=== PATIENT | female | born 1980 | race Caucasian/White ===

== ENCOUNTER 2016-04-07 18:08 | Emergency (ER) | payer MEDICAID ==
[~2016-04-07] VITALS: Ht 167.6 cm; Wt 93.0 kg
[~2016-04-07 18:08] MED LIST: ABILIFY10 MG PO; ADIPEX-P37.5 M2 PO; ADIPEX-P37.5 MG PO; ALEVE220 MG PO; AMOXICILLIN 50500 MG PO; AMOXICILLIN500 M2 PO; ANAPROX DS550 MG PO; ATIVAN GENERIC0.5 MG PO; AUGMENTIN 875-1 EACH PO; BACTRIM DS 8001 TAB PO; BACTROBAN2% TP; BENTYL10 M1 PO; CELEXA 20MG TAB20 MG PO; CIPRO 500MG TA500 MG PO; CIPROFLOXACIN500 M2 PO; CLONAZEPAM 1MG T1 MG; COGENTIN GENERIC1 MG PO; ESTRADIOL1 MG PO; FLEXERIL10 MG PO; FLONASE 50 MCG16 GM; GABAPENTIN300 M1 PO; GENTAMICIN O5 ML/BOT OP; HYDROCODONE1 TABLET PO; IBUPROFEN800 MG PO; INDERAL10 MG; KEFLEX 500MG.500 MG PO; KLONOPIN WAFERS1 MG PO; LANSOPRAZOLE30 MG PO; LEVAQUIN250 MG PO; LEXAPRO 20 MG T20 MG PO; MACROBID 100MG100 MG PO; MEDROL 4MG. DOSE4 MG PO; MELOXICAM15 MG PO; MOBIC15 MG PO; MOTRIN400 MG PO; MOTRIN600 M1 PO; MOTRIN600 MG PO; MOTRIN800 MG PO; MUCINEX600 MG PO; NAPROSYN 500MG500 MG PO; NAPROSYN500 M1 PO; NASONEX0.05 MG/AC NS; NEOSPORIN OPTH.4 GM OP; NORCO 325 MG-51 TAB PO; OMEPRAZOLE40 MG PO; PAXIL20 MG PO; PERCOCET 5/3251 EACH PO; PHENERGAN 25MG.25 M1 PO; PHENTERMINE37.5 MG PO; PREDNISONE 20MG20 MG PO; PROTONIX40 MG PO; PYRIDIUM 200MG200 MG PO; QUETIAPINE FUM200 M1 PO; QUETIAPINE FUMA25 MG PO; RISPERDAL 1 MG T1 MG PO; ROBAXIN-750750 MG PO; SEPTRA DS 800 M1 TAB PO; SEROQUEL 100MG100 MG PO; SUMATRIPTAN SUC25 MG PO; TOPIRAMATE 25MG25 MG PO; TORADOL10 M1 PO; ULTRAM 50 MG TA50 MG PO; VERAPAMIL HCL120 MG PO; VICODIN 5/500 T1 TAB PO; VICODIN 5/6 EACH/PAK OR; VISTARIL25 MG PO; VOLTAREN75 MG PO; WELLBUTRIN 100100 M1 PO; WELLBUTRIN 150150 MG; XANAX 0.5MG TA0.5 MG PO; ZANTAC 150150 MG PO; ZITHROMAX Z-PA250 M1 PO; ZOFRAN4 MG PO; ZYPREXA 5MG TAB5 MG PO
[2016-04-07 19:02] LABS: UTC STREP SCREEN NOT DETECTED (NOTDETECTED)
--- NOTE | 2016-04-07 19:19 | Urgent Treatment Center Report ---
History of Present Issue Date/Time Seen by Provider 04/07/16 1820 Visit Reason Pt arrived:Walked Presenting Problem:SORE THROAT, VOMITING, DIARRHEA, BODY ACHES SINCE THIS MORNING Location if Accident: Onset of symptoms date/time:/ or onset unknown for:MEDICAL HX UNKNOWN Have you (or family members/close friends) recently traveled outside the [place]? N If Yes, where/when: Have you had exposure to infectious disease within the past month? TB? Other? Specify: Patient states that she has not been feeling well since this morning states that she has been having sore throat vomiting diarrhea and body aches. States that her daughter had a virus similar to this a few days ago ALLERGIES Coded Allergies: lamotrigine (From Lamictal) (Intermediate, I-RASH 12/15/15) codeine (Mild, NA-NAUSEA 12/15/15) Home Medications Active Scripts ONDANSETRON HCL (Zofran 4MG Tab) 4 MG PO Q6HP PRN NAUSEA AND VOMITING #40 TAB Prov: 12/15/15 Pantoprazole Sodium (Protonix) 40 MG PO DAILY #30 ECT Prov: 12/15/15 Naproxen (Naprosyn 500MG Tab) 500 MG PO BID #60 TAB Prov: 12/21/15 Acetaminophen/Hydrocodone Bi (Vicodin) 1 TAB PO TIDP PRN pain\ #10 TAB Prov: 12/23/15 Ibuprofen (Ibuprofen 800MG) 800 MG PO Q8HP PRN pain #15 TAB Prov: 07/04/15 Reported Medications Estradiol 2 MG PO DAILY Escitalopram Oxalate (Lexapro 20MG) 20 MG PO DAILY History Medical History General CAD? No Angina: No [place]: No Hypertension? Yes Hyperlipidemia? No CHF? No DVT? No PE? No COPD? No Asthma? No Anemia? No GERD? Yes Gastric ulcers? No GI Bleed? No Hernia? No Thyroid Problems? No Hypothyroidism? No CVA? No Seizures? No Diabetes? No Insulin Dependent: No Insulin Pump: No Home FSBS? No Renal Insuffiency? No UTI? Yes Stones? No BPH? No GB Disease: Yes Nephritic Syndrome? No Asplenia? No Hepatitis? No Sickle Cell Disease? No Arthritis? No Migraines? No Cataracts? No Glaucoma? No MRSA? No HIV? No TB? No Anxiety? Yes Depression? No Cancer? No Site: CERVICAL DYSPLASIA More? Yes Additional hx: BIPOLAR, PERSONALITY DISORDER, HEART MURMUR, HEART VALVE PROBLEM, Immunization HX DT/Tetanus > 10 Years Ago Flu 02/23/14 Pneumonia 02/23/14 Surgical Hx Previous Surgery?Y CERVICAL BIOPSY OVARIAN CYST DRAINED RIGHT OVARY REMOVED D&C 07/2007 TUBAL GALLBLADDER 04/20/09 APPENDIX 05/28/09 PARTIAL HYSTERECTOMY L OVARY REMOVED 854493 ORIF RT TIB/FIB LEG SURGERY TO REMOVE SCR Family History Family HX Diabetes Yes CAD Yes Hypertension Yes Hyperlipidemia Yes Cancer Yes TB No Social History Smoking Hx Smoker: Current Every Day Smoker Tobacco: Yes Type Cigarettes Packs/day < 1 Pack Alcohol Alcohol: No Review of Systems All Other Systems Reviewed and Negative ENT nose congestion. Respiratory cough Gastrointestinal nausea, vomiting Physical Exam Vital Signs Vital Signs Date Time Temp Pulse Resp B/P Pulse O2 O2 Flow FiO2 Ox Delivery Rate 04/07 1844 98.2 100 16 106/61 98 04/07 1812 98.2 100 16 106/61 98 General Appearance patient lying on bed, appears ill Respiratory Status Yes: trachea midline, chest symmetrical, non tender chest. No: respiratory distress. Cardiovascular normal exam, no peripheral edema, no gallop, no JVD Neurologic alert, normal exam, no motor/sensory deficits Medical Decision Making LABS/Meds/Orders Pt receiving controlled substance in ED? No Results/Orders Laboratory Tests 04/07/161846: Influenza Type A Ag NOT DETECTED, Influenza Type B Ag NOT DETECTED, Group A Strep Screen NOT DETECTED Orders Procedure Date/time Status UTC STREP SCREEN 04/07 1846 Complete UTC FLU A,B 04/07 1846 Complete Departure Departure Time of Disposition 1915 Disposition DC Home or Self Care(routine) Clinical Impression Primary Impression: Viral gastroenteritis Condition STABLE Referrals Baltazar Green (Family) Patient Instructions Norovirus Infection, Viral Gastroenteritis Additional Instructions Drink Plenty of fluids Over the counter Motrin or Tylenol for fever Follow up family doctor Discharge Counseling Counseled pt/family regarding diagnosis, home care, follow up needs at 1919
[2016-04-07 19:33] VITALS: BP 106/61
== END 2016-04-07 19:34 | disposition home or self-care (01) ==
LOC: ER 18:08 → UTC 18:08
PROVIDERS: Nurse Practitioner
DX: K52.9 Noninfective gastroenteritis and colitis, unspecified (principal)

== ENCOUNTER 2016-06-14 21:16 | Emergency (ER) | payer MEDICAID ==
[~2016-06-14] VITALS: Ht 167.6 cm; Wt 102.5 kg
--- NOTE | 2016-06-14 22:33 | Emergency Room Report ---
See Addendum History of Present Illness Time Seen by 2125 Presenting Problem in Triage Pt arrived:Walked Presenting Problem:C/O KNOT ONLEFT BREAST FOR APPROX 2 WEEKS. 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 N Clinical Suspician of Infection? Y Mental Status: 1 - Regular (Normal Baseline) Sepsis Risk:Low Sepsis Risk Have you (or family members/close friends) recently traveled outside the [place]? N If Yes, where/when: Have you had exposure to infectious disease within the past month? N TB? Other? Specify: Comment The patient complains of a possible boil on her LEFT breast for 2 weeks. She has a history of a boil in the same general area inferior to her breast months ago. No fever. She complains of pain. ALLERGIES Coded Allergies: lamotrigine (From Lamictal) (Intermediate, I-RASH 12/15/15) codeine (Mild, NA-NAUSEA 12/15/15) Home Medications Active Scripts ONDANSETRON HCL (Zofran 4MG Tab) 4 MG PO Q6HP PRN NAUSEA AND VOMITING #40 TAB Prov: 12/15/15 Pantoprazole Sodium (Protonix) 40 MG PO DAILY #30 ECT Prov: 12/15/15 Naproxen (Naprosyn 500MG Tab) 500 MG PO BID #60 TAB Prov: 12/21/15 Acetaminophen/Hydrocodone Bi (Vicodin) 1 TAB PO TIDP PRN pain\ #10 TAB Prov: 12/23/15 Ibuprofen (Ibuprofen 800MG) 800 MG PO Q8HP PRN pain #15 TAB Prov: 07/04/15 Reported Medications Estradiol 2 MG PO DAILY Escitalopram Oxalate (Lexapro 20MG) 20 MG PO DAILY History Medical History General CAD? No Angina: No [place]: No Hypertension? Yes Hyperlipidemia? No CHF? No DVT? No PE? No COPD? No Asthma? No Anemia? No GERD? Yes Gastric ulcers? No GI Bleed? No Hernia? No Thyroid Problems? No Hypothyroidism? No CVA? No Seizures? No Diabetes? No Insulin Dependent: No Insulin Pump: No Home FSBS? No Renal Insuffiency? No End Stage Renal Disease? No UTI? Yes Stones? No BPH? No GB Disease: Yes Nephritic Syndrome? No Asplenia? No Hepatitis? No Sickle Cell Disease? No Arthritis? No Migraines? No Cataracts? No Glaucoma? No MRSA? No HIV? No TB? No Anxiety? Yes Depression? No Cancer? No Site: CERVICAL DYSPLASIA More? 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 Cardiovascular regular rate/rhythm Neurologic alert, no motor/sensory deficits Skin nurse present during exam of breast and during procedure., 3 cm diameter abscess with overlying cellulitis inferior medial LEFT breast. Tender. Medical Decision Making LABS/Meds/Orders Pt receiving controlled substance in ED? Yes Pedro was queried for this patient? Yes Reference #: [id number] Comment 4 rxs. last rx 10 [place] on 12/28/15 Results/Orders Current Medication Orders Sig/Nedra Start time Last Medication Dose Route Stop Time Status Admin Hydrocodone Bitart/ 1 TAB ONCE ONE 06/14 2299 AC 06/14 Acetaminophen PO 06/14 2300 225 Trimethoprim/ 1 TABLET ONCE ONE 06/14 2299 CKDr 06/14 Sulfamethoxazole PO 06/14 2300 225 Trimethoprim/ 0 .STK-MED ONE 06/14 2254 DC Sulfamethoxazole PO Hydrocodone Bitart/ 0 .STK-MED ONE 06/14 2252 DC Acetaminophen PO Departure Departure Disposition DC Home or Self Care(routine) Clinical Impression Primary Impression: Cutaneous abscess Qualifiers: Site of cutaneous abscess: trunk Site of cutaneous abscess of trunk : chest wall Qualified Code: L02.213 - Cutaneous abscess of chest wall Condition STABLE Patient Instructions DI for Incision and Drainage of a Skin Abscess Additional Instructions Additional instructions for ABSCESS: Day one and two: Remove the bandage and shower the area, leaving the packing in place. Gently blot dry. Apply a bandage. Day three: Remove the bandage. Wet the packing in the shower and remove the packing. Apply a bandage. Days four and beyond: Clean area with soap and water in the shower daily. Apply a bandage daily until the wound is closed completely. Return to the emergency department if increasing pain, swelling, redness, redstreaks or fever greater than 101 degrees. Prescriptions Current Visit Scripts SULFAMETHOXAZOLE W/TRIMETHOPRI (Bactrim Ds Tab) 1 TAB PO BID #20 TAB HYDROCODONE/ACETAMINOPHEN ([place] 5-325 Tablet) 1 TAB PO Q6HP PRN pain #6 TAB ED Critical Care Critical Care No at 1930
--- NOTE | 2016-06-14 22:33 | Emergency Room Report ---
See Addendum History of Present Illness Time Seen by 2125 Presenting Problem in Triage Pt arrived:Walked Presenting Problem:C/O KNOT ONLEFT BREAST FOR APPROX 2 WEEKS. 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 N Clinical Suspician of Infection? Y Mental Status: 1 - Regular (Normal Baseline) Sepsis Risk:Low Sepsis Risk Have you (or family members/close friends) recently traveled outside the [place]? N If Yes, where/when: Have you had exposure to infectious disease within the past month? N TB? Other? Specify: Comment The patient complains of a possible boil on her LEFT breast for 2 weeks. She has a history of a boil in the same general area inferior to her breast months ago. No fever. She complains of pain. ALLERGIES Coded Allergies: lamotrigine (From Lamictal) (Intermediate, I-RASH 12/15/15) codeine (Mild, NA-NAUSEA 12/15/15) Home Medications Active Scripts ONDANSETRON HCL (Zofran 4MG Tab) 4 MG PO Q6HP PRN NAUSEA AND VOMITING #40 TAB Prov: 12/15/15 Pantoprazole Sodium (Protonix) 40 MG PO DAILY #30 ECT Prov: 12/15/15 Naproxen (Naprosyn 500MG Tab) 500 MG PO BID #60 TAB Prov: 12/21/15 Acetaminophen/Hydrocodone Bi (Vicodin) 1 TAB PO TIDP PRN pain\ #10 TAB Prov: 12/23/15 Ibuprofen (Ibuprofen 800MG) 800 MG PO Q8HP PRN pain #15 TAB Prov: 07/04/15 Reported Medications Estradiol 2 MG PO DAILY Escitalopram Oxalate (Lexapro 20MG) 20 MG PO DAILY History Medical History General CAD? No Angina: No [place]: No Hypertension? Yes Hyperlipidemia? No CHF? No DVT? No PE? No COPD? No Asthma? No Anemia? No GERD? Yes Gastric ulcers? No GI Bleed? No Hernia? No Thyroid Problems? No Hypothyroidism? No CVA? No Seizures? No Diabetes? No Insulin Dependent: No Insulin Pump: No Home FSBS? No Renal Insuffiency? No End Stage Renal Disease? No UTI? Yes Stones? No BPH? No GB Disease: Yes Nephritic Syndrome? No Asplenia? No Hepatitis? No Sickle Cell Disease? No Arthritis? No Migraines? No Cataracts? No Glaucoma? No MRSA? No HIV? No TB? No Anxiety? Yes Depression? No Cancer? No Site: CERVICAL DYSPLASIA More? 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 Cardiovascular regular rate/rhythm Neurologic alert, no motor/sensory deficits Skin nurse present during exam of breast and during procedure., 3 cm diameter abscess with overlying cellulitis inferior medial LEFT breast. Tender. Medical Decision Making LABS/Meds/Orders Pt receiving controlled substance in ED? Yes Pedro was queried for this patient? Yes Reference #: [id number] Comment 4 rxs. last rx 10 [place] on 12/28/15 Results/Orders Current Medication Orders Sig/Nedra Start time Last Medication Dose Route Stop Time Status Admin Hydrocodone Bitart/ 1 TAB ONCE ONE 06/14 2299 AC 06/14 Acetaminophen PO 06/14 2300 225 Trimethoprim/ 1 TABLET ONCE ONE 06/14 2299 CKDr 06/14 Sulfamethoxazole PO 06/14 2300 225 Trimethoprim/ 0 .STK-MED ONE 06/14 2254 DC Sulfamethoxazole PO Hydrocodone Bitart/ 0 .STK-MED ONE 06/14 2252 DC Acetaminophen PO Departure Departure Disposition DC Home or Self Care(routine) Clinical Impression Primary Impression: Cutaneous abscess Qualifiers: Site of cutaneous abscess: trunk Site of cutaneous abscess of trunk : chest wall Qualified Code: L02.213 - Cutaneous abscess of chest wall Condition STABLE Patient Instructions DI for Incision and Drainage of a Skin Abscess Additional Instructions Additional instructions for ABSCESS: Day one and two: Remove the bandage and shower the area, leaving the packing in place. Gently blot dry. Apply a bandage. Day three: Remove the bandage. Wet the packing in the shower and remove the packing. Apply a bandage. Days four and beyond: Clean area with soap and water in the shower daily. Apply a bandage daily until the wound is closed completely. Return to the emergency department if increasing pain, swelling, redness, redstreaks or fever greater than 101 degrees. Prescriptions Current Visit Scripts SULFAMETHOXAZOLE W/TRIMETHOPRI (Bactrim Ds Tab) 1 TAB PO BID #20 TAB HYDROCODONE/ACETAMINOPHEN ([place] 5-325 Tablet) 1 TAB PO Q6HP PRN pain #6 TAB ED Critical Care Critical Care No at 5828
[2016-06-14] MEDS ORDERED: NORCO 325 MG-51 TAB PO (22:57)
[2016-06-14] MEDS ORDERED: BACTRIM DS 8001 TA1 PO (22:57)
[2016-06-14 23:04] VITALS: BP 135/83
== END 2016-06-14 23:06 | disposition home or self-care (01) ==
LOC: ER 21:16
PROC: 0H95XZZ Drainage of Chest Skin, External Approach (ICD-10-PCS; principal; 2016-06-14)
DX: L02.213 Cutaneous abscess of chest wall (principal); I10 Essential (primary) hypertension; Z72.0 Tobacco use

== ENCOUNTER 2016-11-05 13:02 | Emergency (ER) | payer MEDICAID ==
[~2016-11-05] VITALS: Ht 167.6 cm; Wt 99.8 kg
--- NOTE | 2016-11-05 13:59 | Urgent Treatment Center Report ---
History of Present Issue Date/Time Seen by Provider 11/05/16 1340 Visit Reason Pt arrived:Walked Presenting Problem:PT STATES SHE FELL AND INJURIED HER RT ELBOW ON THURSDAY NIGHT. Location if Accident: Onset of symptoms date/time:/ or onset unknown for:MEDICAL HX UNKNOWN Have you (or family members/close friends) recently traveled outside the [place]? N If Yes, where/when: Have you had exposure to infectious disease within the past month? TB? Other? Specify: Patient state that she fell on Thursday night against the couch and landed on her right elbow State that ever since she has been having pain and swelling in her right elbow and some bruising with a small carpet burn on the lower side of her arm State that she noticed that after the pain went down she has been having more pain that she was when she first injuried it ALLERGIES Coded Allergies: lamotrigine (From Lamictal) (Intermediate, I-RASH 12/15/15) codeine (Mild, NA-NAUSEA 12/15/15) Home Medications Active Scripts Pantoprazole Sodium (Protonix) 40 MG PO DAILY #30 ECT Prov: 12/15/15 Azithromycin (Zithromycin (Z-BENJAMÍN) 250MG Tab) 250 MG PO DAILY #6 TAB Prov: 09/05/16 Methylprednisolone (Medrol Dose Benjamín) 4 MG PO UD #1 BENJAMÍN Prov: 09/05/16 Reported Medications Estradiol 2 MG PO DAILY Escitalopram Oxalate (Lexapro 20MG) 20 MG PO DAILY History Medical History General CAD? No Angina: No [place]: No Hypertension? Yes Hyperlipidemia? No CHF? No DVT? No PE? No COPD? No Asthma? No Anemia? No GERD? Yes Gastric ulcers? No GI Bleed? No Hernia? No Thyroid Problems? No Hypothyroidism? No CVA? No Seizures? No Diabetes? No Insulin Dependent: No Insulin Pump: No Home FSBS? No Renal Insuffiency? No UTI? Yes Stones? No BPH? No GB Disease: Yes Nephritic Syndrome? No Asplenia? No Hepatitis? No Sickle Cell Disease? No Arthritis? No Migraines? No Cataracts? No Glaucoma? No MRSA? No HIV? No TB? No Anxiety? Yes Depression? No Cancer? No Site: CERVICAL DYSPLASIA More? Yes Additional hx: BIPOLAR, PERSONALITY DISORDER, HEART MURMUR, HEART VALVE PROBLEM, Immunization HX DT/Tetanus > 10 Years Ago Flu 02/23/14 Pneumonia 02/23/14 Surgical Hx Previous Surgery?Y CERVICAL BIOPSY OVARIAN CYST DRAINED RIGHT OVARY REMOVED D&C 07/2007 TUBAL GALLBLADDER 04/20/09 APPENDIX 05/28/09 PARTIAL HYSTERECTOMY L OVARY REMOVED [id number] ORIF RT TIB/FIB LEG SURGERY TO REMOVE SCR Family History Family HX Diabetes Yes CAD Yes Hypertension Yes Hyperlipidemia Yes Cancer Yes TB No Social History Smoking Hx Smoker: Current Every Day Smoker Tobacco: Yes Type Cigarettes Packs/day < 1 Pack Alcohol Alcohol: No Review of Systems All Other Systems Reviewed and Negative Comment Pain and bruising in right elbow area after falling on Thursday Physical Exam Vital Signs Vital Signs Date Time Temp Pulse Resp B/P Pulse O2 O2 Flow FiO2 Ox Delivery Rate 11/05 1313 97.7 91 20 128/84 97 General Appearance normal appearance, WD/WN, no apparent distress Respiratory Status Yes: trachea midline, chest symmetrical, non tender chest. No: respiratory distress. Cardiovascular normal exam, regular rate/rhythm, no peripheral edema Extremities swelling, Swelling and contusion with small scabbed area that patient claims is carpet burn, good pulse, good cap refill Neurologic alert, training assistant II-XII nml as tested, normal exam, no motor/sensory deficits, oriented x 3 Medical Decision Making LABS/Meds/Orders Pt receiving controlled substance in ED? No Results/Orders Orders Procedure Date/time Status ELBOW-RT-3 VIEWS 11/05 1313 Active Departure Departure Time of Disposition 1355 Disposition DC Home or Self Care(routine) Clinical Impression Primary Impression: Elbow sprain Condition STABLE Referrals Karel MENDOZA,Mahad Alcantar (Family) Patient Instructions How To Perform RICE (Rest, Ice, Compress, Elevate) Additional Instructions *RICE, Rest the extremity, Ice 15-20 minutes 3-4 times daily, Compress- wear the mika wrap as discussed as much as possible to help reduce swelling and pain, Elevate the extremity when at rest *Mika wrap is for support and help control swelling, use it except in the shower. Be sure that is not to tight but not to loose either *Elevate when resting *Ibuprofen 600-800mg every 6-8 hours as needed for pain an inflammation. If need something more can take Tylenol in between doses of Ibuprofen to help Immediately follow up for new or worsening of symptoms, or no noticeable improvement over the next 3-5 days Discharge Counseling Counseled pt/family regarding diagnosis, test results, medications/RX, home care, follow up needs at 2489
--- NOTE | 2016-11-05 14:08 | RADIOLOGY REPORT PS360 ---
ELBOW-RT-3 VIEWS HISTORY: INJURY ORDERING PHYSICIAN: CHLOE VAZQUEZ APRN PATIENT AGE: 36 years COMPARISON: None FINDINGS: BONY STRUCTURES: No fracture or dislocation. No lytic or blastic change. Normal mineralization. SOFT TISSUES: Unremarkable. No radio opaque foreign bodies. No displaced fat pad. JOINT SPACE: Well-preserved. No significant arthritic changes evident. IMPRESSION: Negative elbow.
[2016-11-05 14:22] VITALS: BP 128/84
== END 2016-11-05 14:23 | disposition home or self-care (01) ==
LOC: UTC 13:02
DX: S53.401A Unspecified sprain of right elbow, initial encounter (principal); W08.XXXA Fall from other furniture, initial encounter; Y92.048 Other place in boarding-house as the place of occurrence of the external cause; I10 Essential (primary) hypertension; F41.9 Anxiety disorder, unspecified; Z79.899 Other long term (current) drug therapy; F17.210 Nicotine dependence, cigarettes, uncomplicated; F31.9 Bipolar disorder, unspecified

== ENCOUNTER 2016-11-24 02:33 | Emergency (ER) | payer MEDICAID ==
[~2016-11-24] VITALS: Ht 167.6 cm; Wt 102.5 kg
[~2016-11-24 02:33] MED LIST changes: +BACTRIM DS 8001 TA1 PO; +ZITHROMAX Z PA250 MG PO
--- NOTE | 2016-11-24 02:48 | Emergency Room Report ---
History of Present Illness Time Seen by MD Casillas Presenting Problem in Triage Pt arrived:Walked Presenting Problem:HEADACHE STARTED AT 12:30 AM TONIGHT, STATES IT RUNS FROM BASE OF RIGHT NECK UP AND AROUND HEAD, AND NECK PAIN. Onset of symptoms date/time:11/24/1611/02/29 or onset unknown for: Treatment Prior to Arrival: OTC HEADACHE RELIEF SAP FICO ARCHITECT Provided by:SELF Sepsis Risk Assessment: Temp: 98.0 B/P: 141/96 MAP: 111 Pulse: 67 Resp: 22 Recent fever? N Clinical Suspician of Infection? N Mental Status: 1 - Regular (Normal Baseline) Sepsis Risk:Low Sepsis Risk Have you (or family members/close friends) recently traveled outside the [place]? N If Yes, where/when: Have you had exposure to infectious disease within the past month? N TB? Other? Specify: Source patient, RN notes reviewed, old records Exam Limitations no limitations Comment atraumatic rt occipital wilkes and neck pain w/o trauma or rash and no aura which started tonight Cardiac Chest Pain Chest pain indicative of cardiac No Timing/Duration this evening Severity moderate ALLERGIES Coded Allergies: lamotrigine (From Lamictal) (Intermediate, I-RASH 12/15/15) codeine (Mild, NA-NAUSEA 12/15/15) Home Medications Active Scripts Pantoprazole Sodium (Protonix) 40 MG PO DAILY #30 ECT Prov: 12/15/15 Reported Medications Escitalopram Oxalate (Lexapro 20MG) 20 MG PO DAILY History Medical History General CAD? No Angina: No [place]: No Hypertension? Yes Hyperlipidemia? No CHF? No DVT? No PE? No COPD? No Asthma? No Anemia? No GERD? Yes Gastric ulcers? No GI Bleed? No Hernia? No Thyroid Problems? No Hypothyroidism? No CVA? No Seizures? No Diabetes? No Insulin Dependent: No Insulin Pump: No Home FSBS? No Renal Insuffiency? No End Stage Renal Disease? No UTI? Yes Stones? No BPH? No GB Disease: Yes Nephritic Syndrome? No Asplenia? No Hepatitis? No Sickle Cell Disease? No Arthritis? No Migraines? No Cataracts? No Glaucoma? No MRSA? No HIV? No TB? No Anxiety? Yes Depression? No Cancer? No Site: CERVICAL DYSPLASIA More? 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 Respiratory denies cough, denies shortness of breath, denies wheezing Cardiovascular denies chest pain, denies syncope Gastrointestinal denies abdominal pain, denies diarrhea, denies vomiting Genitourinary denies: dysuria, frequency, hesitancy, hematuria. Musculoskeletal denies back pain, denies joint pain, denies joint swelling, neck pain Skin denies rash Psychiatric/Neurological see HPI, headache, denies seizure Physical Exam Vital Signs Vital Signs Date Time Temp Pulse Resp B/P Pulse O2 O2 Flow FiO2 Ox Delivery Rate 11/24 0406 66 20 148/82 96 11/24 0236 98.0 67 22 141/96 96 - WBC >12,000 or <4,000 or 10% bands? 2 or more SIRS Criteria Met? B/P:141/96 MAP:111 Creatinine >2.0? UA output<0.5ml/kg/hr for 2 hrs? Platelet count >100,000? Lactate >2.0mmol/1? INR >1.2 or PTT > than 60 sec? Evidence of Organ Dysfunction? Provider documented clinical suspician of infection? N Sepsis Criteria Count: 1 Sepsis Risk: Low Sepsis Risk General Appearance no apparent distress Eye Exam - bilateral eye PERRL, bilateral eye EOMI Ear, Nose, Throat abnormal TM (R) Neck tender lateral Respiratory Status No: respiratory distress. Cardiovascular regular rate/rhythm Peripheral Pulses Pulses normal Yes Gastrointestinal soft Extremities normal inspection Strength 4 Upper Ext (L), 4 Upper Ext (R), 4 Lower Ext (L), 4 Lower Ext (R) Neurologic alert, cooker loader II-XII nml as tested, no motor/sensory deficits Glascow Coma Scale Glascow Coma Scale Response Value EYE response: 4 Spontaneously 4 MOTOR response: 6 OBEYS 6 VERBAL response: 5 Oriented & Converses 5 Total 15 Reflexes Reflexes normal Yes Mental status normal mood/affect Skin no rash cons.w/shingles Medical Decision Making LABS/Meds/Orders Pt receiving controlled substance in ED? No Results/Orders Laboratory Tests 11/24/16 0305: Sodium 138, Potassium 3.3 L, Chloride 105, Carbon Dioxide 26, BUN 11, Creatinine 0.6, Estimated Creat Clear 214 H, Estimated GFR (MDRD) 114, Glucose 104, Calcium 9.0, Total Bilirubin 0.5, AST 18, ALT 34, Alkaline Phosphatase 93, Total Protein 7.7, Albumin 3.6, Globulin 4.1 H, Albumin/Globulin Ratio 0.9 L, WBC 6.3, RBC 4.63, Hgb 13.3, Hct 41.2, MCV 88.9, RDW 12.7, Plt Count 232, MPV 8.4, Gran % 47.5, Gran # 3.0, Lymphocytes % 45.6, Monocytes % 5.0, Eosinophils % 1.4, Basophils % 0.6, Lymphocytes # 2.9, Monocytes # 0.3, Eosinophils # 0.1, Basophils # 0.0, PUBS MCHC 32.3, ESR 66 H, MCH 28.7 Orders Procedure Date/time Status DIET-NOTHING BY MOUTH 11/[address] HEAD W/O CONTRAST 11/[address] CERVICAL SPINE W/O CONT. 11/[address] SCAN REQ 11/24 245 Active SED RATE 11/24 245 Complete COMPLETE METABOLIC PANEL 11/24 245 Complete CBC WITH AUTO DIFF 11/24 245 Complete XRAY/CT/US XRAY/CT/US CT head, C-spine CT interpretation by discussed w/radiologist Time results known: 319 CT Results no fracture seen Departure Departure Time of Disposition 319 Disposition DC Home or Self Care(routine) Clinical Impression Primary Impression: Otitis media Qualifiers: Otitis media type: unspecified Chronicity: acute Qualified Code: H66.90 - Otitis media, unspecified, unspecified ear Condition STABLE Referrals Karel MENDOZA,Mahad Alcantar (Family) Patient Instructions DI for Headache Additional Instructions fluids and use meds Discharge Counseling Counseled pt/family regarding diagnosis, test results, medications/RX, follow up needs Prescriptions Current Visit Scripts CEPHALEXIN (Keflex 500MG Capsule) 500 MG PO Q12H #14 CAP Prednisone (Prednisone 20MG) 20 MG PO BID #10 TAB ED Critical Care Critical Care No at 0401
[2016-11-24 03:26] LABS: LYMPH # 2.9 K/mm3 (0.7-4.5); LYMPH % 45.6 % (10-50.0)
[2016-11-24 03:27] LABS: HEMOGLOBIN 13.3 g/dL (12.2-16.2)
[2016-11-24] MEDS ORDERED: KEFLEX 500MG.500 MG PO (04:08)
[2016-11-24] MEDS ORDERED: PREDNISONE 20MG20 MG PO (04:08)
[2016-11-24 04:23] VITALS: BP 148/82
--- NOTE | 2016-11-24 08:45 | RADIOLOGY REPORT PS360 ---
CT CERVICAL SPINE W/O CONT INDICATION: Right-sided neck pain radiating into the head, headache HEADACHE ORDERING PHYSICIAN: Vijay Vinson MD PATIENT AGE: 36 years COMPARISON: None TECHNIQUE: Axial images are obtained without contrast. Sagittal and coronal reformatted images are reviewed as well. FINDINGS: There is straightening of the cervical lordosis. No fracture or dislocation. There is normal alignment. The disc spaces are well-preserved. No lytic or blastic change. Facet hypertrophic changes are present on the right at C4-C5 but is not causing any foraminal narrowing. Lung apices are clear. There is some heterogeneous density of the thyroid gland nonspecific. Scattered small lymph nodes are present in the neck the largest node on the left measuring up to 2.5 x 1.6 cm in the deep cervical chain. IMPRESSION: 1. No acute finding. 2. Mild facet hypertrophic change on the right at C4-C5. 3. Mildly enlarged cervical lymph nodes
--- NOTE | 2016-11-24 08:46 | RADIOLOGY REPORT PS360 ---
CT HEAD W/O CONTRAST HISTORY: Severe headache HEADACHE ORDERING PHYSICIAN: Vijay Vinson MD PATIENT AGE: 36 years COMPARISON: None TECHNIQUE: Axial images obtained without contrast. Brain and bone windows reviewed. FINDINGS: No midline shift, mass effect, intracranial hemorrhage, hydrocephalus, or extra-axial fluid collection is evident. The calvarium has an unremarkable appearance. No mastoid effusion. The visualized paranasal sinuses are unremarkable. IMPRESSION: Negative CT head without contrast. No acute finding.
--- OUTSIDE RECORDS SUMMARY | 2016-11-29 01:41 | External Medical Summary Rpt | CCD ---
Demographics Preferred Language Rwandan Marital Status Unknown Rastafarian Affiliation Unknown Race Unknown Ethnic Group Unknown Author Author , SHAY DAY Address Unknown Phone Immunization Unable to retrieve immunization data due to connection failure with Immunization Registry. Please try again later.
--- OUTSIDE RECORDS SUMMARY | 2016-11-29 01:41 | External Medical Summary Rpt | CCD ---
Demographics Preferred Language [place] Marital Status Unknown Denominational Affiliation Unknown Race Unknown Ethnic Group Unknown Author Author , SHAY DAY Address Unknown Phone Immunization Unable to retrieve immunization data due to connection failure with Immunization Registry. Please try again later.
--- OUTSIDE RECORDS SUMMARY | 2016-11-29 01:42 | External Medical Summary Rpt ---
Author Author SHAY Fournier, SHAY [employer] Organization [employer] Address Unknown Phone Unavailable Results Streptococcus pyogenes Ag [Presence] in Unspecified specimen Observa Value Referen Units Interpr Notes Date tion ce etation Range Strepto NOT NOTDETE No No LOT # Sep 05 coccus DETECTE CTED informa informa N/A EXP 2016 pyogene D tion in tion in DATE 1:31 PM s Ag source source N/A [Presen data data ce] in Unspeci fied specime n
== END 2016-11-24 04:23 | disposition home or self-care (01) ==
LOC: ER 02:33
PROVIDERS: Emergency Medicine
DX: H66.91 Otitis media, unspecified, right ear (principal); Z88.6 Allergy status to analgesic agent; I10 Essential (primary) hypertension; K21.9 Gastro-esophageal reflux disease without esophagitis; F41.9 Anxiety disorder, unspecified; F17.210 Nicotine dependence, cigarettes, uncomplicated

== ENCOUNTER → 2016-11-27 | Outpatient (CLI) | payer MEDICAID ==
[~2016-11-27] MED LIST changes: +BROMFED DM COU118 ML PO
[2016-11-28 08:51] LABS: RA Latex Turbid. <10.0 IU/mL (0.0-13.9)
[2016-11-30 18:36] LABS: CCP Antibodies IgG/IgA 8 units (0-19)
== END ==
LOC: LAB 13:11
PROVIDERS: Nurse Practitioner Family
DX: R70.0 Elevated erythrocyte sedimentation rate (principal)

== ENCOUNTER 2016-12-21 09:02 | Emergency (ER) | payer MEDICAID ==
[~2016-12-21] VITALS: Ht 167.6 cm; Wt 102.7 kg
[~2016-12-21 09:02] MED LIST changes: -BROMFED DM COU118 ML PO
--- NOTE | 2016-12-21 09:35 | Urgent Treatment Center Report ---
History of Present Issue Date/Time Seen by Provider 12/21/16923 Visit Reason Pt arrived:Walked Presenting Problem:PT C/O OF COUGH, HEAD AND CHEST CONGESTION AND SORE THROAT Location if Accident: Onset of symptoms date/time:/ or onset unknown for:MEDICAL HX UNKNOWN Have you (or family members/close friends) recently traveled outside the [place]? N If Yes, where/when: Have you had exposure to infectious disease within the past month? TB? Other? Specify: Patient state that she has had cough and congestion along with sinus pain and pressure along with sore throat. State that symptoms started yesterday and has continued to get worse. State that she woke up this morning and her throat was more irritated and sore and the drainage had her coughing all night. ALLERGIES Coded Allergies: lamotrigine (From Lamictal) (Intermediate, I-RASH 12/15/15) codeine (Mild, NA-NAUSEA 12/15/15) Home Medications Active Scripts Pantoprazole Sodium (Protonix) 40 MG PO DAILY #30 ECT Prov: 12/15/15 CEPHALEXIN (Keflex 500MG Capsule) 500 MG PO Q12H #14 CAP Prov: 11/24/16 Prednisone (Prednisone 20MG) 20 MG PO BID #10 TAB Prov: 11/24/16 Reported Medications Escitalopram Oxalate (Lexapro 20MG) 20 MG PO DAILY History Medical History General CAD? No Angina: No [place]: No Hypertension? Yes Hyperlipidemia? No CHF? No DVT? No PE? No COPD? No Asthma? No Anemia? No GERD? Yes Gastric ulcers? No GI Bleed? No Hernia? No Thyroid Problems? No Hypothyroidism? No CVA? No Seizures? No Diabetes? No Insulin Dependent: No Insulin Pump: No Home FSBS? No Renal Insuffiency? No UTI? Yes Stones? No BPH? No GB Disease: Yes Nephritic Syndrome? No Asplenia? No Hepatitis? No Sickle Cell Disease? No Arthritis? No Migraines? No Cataracts? No Glaucoma? No MRSA? No HIV? No TB? No Anxiety? Yes Depression? No Cancer? No Site: CERVICAL DYSPLASIA More? Yes Additional hx: BIPOLAR, PERSONALITY DISORDER, HEART MURMUR, HEART VALVE PROBLEM, Immunization HX DT/Tetanus > 10 Years Ago Flu 01/08/15 Pneumonia 02/23/14 Surgical Hx Previous Surgery?Y CERVICAL BIOPSY OVARIAN CYST DRAINED RIGHT OVARY REMOVED D&C 07/2007 TUBAL GALLBLADDER 04/20/09 APPENDIX 05/28/09 PARTIAL HYSTERECTOMY L OVARY REMOVED [id number] ORIF RT TIB/FIB LEG SURGERY TO REMOVE SCR Family History Family HX Diabetes Yes CAD Yes Hypertension Yes Hyperlipidemia Yes Cancer Yes TB No Social History Smoking Hx Smoker: Current Every Day Smoker Tobacco: Yes Type Cigarettes Packs/day < 1 Pack Alcohol Alcohol: No Review of Systems All Other Systems Reviewed and Negative ENT ear pain, nose discharge, nose congestion, throat pain. Respiratory cough, denies shortness of breath, denies stridor, denies wheezing Physical Exam Vital Signs Vital Signs Date Time Temp Pulse Resp B/P Pulse O2 O2 Flow FiO2 Ox Delivery Rate 12/21 914 98.4 84 18 167/94 98 General Appearance normal appearance, WD/WN, no apparent distress Ear, Nose, Throat sinus pain/drainage, nasal congestion, Throat red, irritated, drainage noted no exudate, tenderness noted maxillary sinuses reports yellowish dark green drainage Respiratory Status Yes: trachea midline, chest symmetrical, non tender chest. No: respiratory distress. Cardiovascular normal exam, regular rate/rhythm, no peripheral edema Neurologic alert, normal exam, oriented x 3 Medical Decision Making LABS/Meds/Orders Pt receiving controlled substance in ED? No Results/Orders Laboratory Tests 12/21/16 0937: Influenza Type A Ag Pending, Influenza Type B Ag Pending, Group A Strep Screen Pending Orders Procedure Date/time Status ARC STREP SCREEN 12/21 936 Active [facility] FLU A,B 12/21 936 Active Departure Departure Time of Disposition 0933 Disposition [place] Home or Self Care(routine) Clinical Impression Primary Impression: Upper respiratory infection Qualifiers: URI type: unspecified URI Qualified Code: J06.9 - Acute upper respiratory infection, unspecified Condition STABLE Referrals Karel MENDOZA,Mahad Alcantar (Family): 3 Days-Call Office if no improvement Patient Instructions DI for Cough -- Adult, DI for Sinusitis, Sinus Headache, Sore Throat Additional Instructions * Monitor Temp. Tylenol and/or Ibuprofen as needed. ER if fever is no less than 101 despite alternating Tylenol and Ibuprofen * Encourage fluids, water, Gatorade, powerade, pedialyte if infant/toddler/or child * Warm salt water gargles for throat irritation *Warm fluids *Sore throat lozenges *Sleep elevated *humidifier or vaporizer Lots of rest Increase fluids, water, Gatorade, powerade *Flonase 2 sprays each nostril daily but may take 2-3 days to notice improvement with it *Bromfed may cause drowsiness. Know how it effect you or your child. Before driving, caring for small children or sending your child to school *Your throat swab was sent to lab for culture. Those results area typically sent to your primary care physician. Be sure to follow up in 2-3 days if no improvement so they can review those results and treat if necessary If you dont have primary care I recommend you get one, but in the mean time you will have to return to a walk in clinic Follow up IMMEDIATELY for new or worsening of symptoms OR no noticeable improvement over the next 48-72 hours. 911 immediately for any life threatening symptoms such as chest pain or difficulty breathing Discharge Counseling Counseled pt/family regarding diagnosis, test results, medications/RX, home care, follow up needs Prescriptions Current Visit Scripts Azithromycin (Zithromycin (Z-BENJAMÍN) 250MG Tab) 250 MG PO DAILY #6 TAB TAKE TWO (2) TABLETS ON DAY 1, THEN ONE (1) TABLET DAY #2 THRU #5 D-METHORPHAN HB/P-EPD HCL/BPM (Bromfed Dm Cough Syrup) 10 ML PO Q4HP PRN cough #120 SYR Fluticasone Propionate (Flonase 50 Mcg Nasal [place]) 2 SPRAY NA DAILY #1 BOT Methylprednisolone (Medrol Dose Benjamín) 4 MG PO UD #1 BENJAMÍN TAKE DIRECTED ON PACKAGING at 0945
[2016-12-21] MEDS ORDERED: MEDROL 4MG. DOSE4 MG PO (09:51)
[2016-12-21] MEDS ORDERED: BROMFED DM COU118 ML PO (09:51)
[2016-12-21] MEDS ORDERED: ZITHROMAX Z PA250 MG PO (09:51)
[2016-12-21] MEDS ORDERED: FLONASE 50 MCG16 GM (09:51)
[2016-12-21 09:54] LABS: UTC STREP SCREEN NOT DETECTED (NOTDETECTED)
[2016-12-21 09:59] VITALS: BP 167/94
== END 2016-12-21 10:00 | disposition home or self-care (01) ==
LOC: UTC 09:02
PROVIDERS: Nurse Practitioner
DX: J06.9 Acute upper respiratory infection, unspecified (principal); I10 Essential (primary) hypertension; F17.210 Nicotine dependence, cigarettes, uncomplicated

== ENCOUNTER 2016-12-30 18:24 | Emergency (ER) | payer MEDICAID ==
[~2016-12-30] VITALS: Ht 167.6 cm; Wt 102.5 kg
[~2016-12-30 18:24] MED LIST changes: +BROMFED DM COU118 ML PO
--- NOTE | 2016-12-30 18:36 | Emergency Room Report ---
History of Present Illness Time Seen by 183 Presenting Problem in Triage Pt arrived:Walked Presenting Problem:PT REPORTING R SIDED CHEST PAIN X2 DAYS, DRY HACKY COUGH Onset of symptoms date/time:12/28/16/ or onset unknown for:MEDICAL HX UNKNOWN Treatment Prior to Arrival: [facility]ION[facility] AGRONOMIST Provided by: Sepsis Risk Assessment: Temp: 98.4 B/P: 151/78 MAP: 102 Pulse: 73 Resp: 18 Recent fever? N Clinical Suspician of Infection? N Mental Status: 1 - Regular (Normal Baseline) Sepsis Risk:Low Sepsis Risk Have you (or family members/close friends) recently traveled outside the [place]? N If Yes, where/when: Have you had exposure to infectious disease within the past month? N TB? Other? Specify: 36 years old white female smoker, she developed upper respiratory infection and a formal runny nose and dry cough, since yesterday she has been experiencing RIGHT upper chest sharp pain piercing into her back. She denies shortness of breath or palpitations nausea vomiting. The patient denies having hemoptysis hematemesis melanotic stool or bleeding per rectum Source patient, RN notes reviewed, family Exam Limitations no limitations (Xiomy MENDOZA,[facility]) Cardiac Chest Pain Chest pain indicative of cardiac No Timing/Duration this evening Severity moderate ALLERGIES Coded Allergies: lamotrigine (From Lamictal) (Intermediate, I-RASH 12/15/15) codeine (Mild, NA-NAUSEA 12/15/15) Home Medications Active Scripts D-METHORPHAN HB/P-EPD HCL/BPM (Bromfed Dm Cough Syrup) 10 ML PO Q4HP PRN cough #120 SYR Prov: 12/21/16 Fluticasone Propionate (Flonase 50 Mcg Nasal [place]) 2 SPRAY NA DAILY #1 BOT Prov: 12/21/16 Methylprednisolone (Medrol Dose Benjamín) 4 MG PO UD #1 BENJAMÍN Prov: 12/21/16 Pantoprazole Sodium (Protonix) 40 MG PO DAILY #30 ECT Prov: 12/15/15 Prednisone (Prednisone 20MG) 20 MG PO BID #10 TAB Prov: 11/24/16 Reported Medications Escitalopram Oxalate (Lexapro 20MG) 20 MG PO DAILY (Karel MENDOZA,Vijay Alcantar) History Medical History General CAD? No Angina: No [place]: No Hypertension? Yes Hyperlipidemia? No CHF? No DVT? No PE? No COPD? No Asthma? No Anemia? No GERD? Yes Gastric ulcers? No GI Bleed? No Hernia? No Thyroid Problems? No Hypothyroidism? No CVA? No Seizures? No Diabetes? No Insulin Dependent: No Insulin Pump: No Home FSBS? No Renal Insuffiency? No End Stage Renal Disease? No UTI? Yes Stones? No BPH? No GB Disease: Yes Nephritic Syndrome? No Asplenia? No Hepatitis? No Sickle Cell Disease? No Arthritis? No Migraines? No Cataracts? No Glaucoma? No MRSA? No HIV? No TB? No Anxiety? Yes Depression? No Cancer? No Site: CERVICAL DYSPLASIA More? 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 Respiratory no symptoms reported Cardiovascular see HPI, chest pain Gastrointestinal no symptoms reported Genitourinary no symptoms reported. Musculoskeletal no symptoms reported Skin no symptoms reported Psychiatric/Neurological no symptoms reported (Xiomy MENDOZA,Rufino) Physical Exam Vital Signs Vital Signs Date Time Temp Pulse Resp B/P Pulse O2 O2 Flow FiO2 Ox Delivery Rate 12/30 2020 85 18 151/102 96 12/30 1921 62 18 171/106 99 12/31 1919 18 12/30 1826 98.4 73 18 151/78 99 - WBC >12,000 or <4,000 or 10% bands? 2 or more SIRS Criteria Met? B/P:151/78 MAP:102 Creatinine >2.0? UA output<0.5ml/kg/hr for 2 hrs? Platelet count >100,000? Lactate >2.0mmol/1? INR >1.2 or PTT > than 60 sec? Evidence of Organ Dysfunction? Provider documented clinical suspician of infection? N Sepsis Criteria Count: 0 Sepsis Risk: Low Sepsis Risk General Appearance normal appearance, WD/WN Eye Exam - bilateral eye normal exam, bilateral eye PERRL, bilateral eye EOMI Ear, Nose, Throat hearing grossly normal, normal ENT inspection Neck normal inspection, non-tender, supple, full range of motion Respiratory Status Yes: trachea midline, chest symmetrical, non tender chest. No: respiratory distress. Lung Sounds bilateral: normal breath sounds, lungs clear. Cardiovascular normal exam, regular rate/rhythm, no peripheral edema, no gallop, no JVD, no murmur, no rub, normal peripheral pulses Peripheral Pulses Pulses normal Yes Gastrointestinal normal bowel sounds, normal exam, non tender, soft, no organomegaly Back normal inspection, no CVA tenderness, no vertebral tenderness Extremities non-tender, normal range of motion, normal inspection Neurologic alert, meeting specialist II-XII nml as tested, normal exam, oriented x 3 Reflexes Reflexes normal Yes Mental status normal mood/affect Skin intact, normal color, warm/dry (Xiomy MENDOZA,[facility]) Medical Decision Making LABS/Meds/Orders Pt receiving controlled substance in ED? No Results/Orders Laboratory Tests 12/30/161934: B-Natriuretic Peptide 52 12/30/161934: Sodium 138, Potassium 3.8, Chloride 103, Carbon Dioxide 29, BUN 8, Creatinine 0.7, Estimated Creat Clear 183, Estimated GFR (MDRD) 96, Glucose 87, Calcium 9.4 , Total Bilirubin 0.5, AST 33, ALT 50, Alkaline Phosphatase 114, Creatine Kinase 50, CK-MB (CK-2) Rel Index 1.0, CK and CKMB Interp < 0.5, Troponin I < 0.02, Total Protein 8.4 H, Albumin 3.9, Globulin 4.5 H, Albumin/Globulin Ratio 0.9 L, D-Dimer 311, WBC 7.7, RBC 5.14, Hgb 14.6, Hct 44.8, MCV 87.1, RDW 12.2, Plt Count 255, MPV 7.9, Gran % 48.3, Gran # 3.7, Lymphocytes % 44.3, Monocytes % 5.1 , Eosinophils % 1.5, Basophils % 0.9, Lymphocytes # 3.4, Monocytes # 0.4, Eosinophils # 0.1, Basophils # 0.1, PUBS MCHC 32.5, MCH 28.3 Current Medication Orders Sig/Nedra Start time Last Medication Dose Route Stop Time Status Admin Levofloxacin 500 MG ONCE ONE 12/30 2029 AC PO 12/30 2030 Methylprednisolone 125 MG ONCE ONE 12/30 2029 AC Sodium Succinate IV 12/30 2030 Ketorolac 0 .STK-MED ONE 12/30 191 DC Tromethamine .ROUTE Ketorolac 30 MG ONCE ONE 12/30 1844 DC 12/30 Tromethamine IV 12/30 1845 192 Sodium Chloride 10 ML PRN PRN 12/30 183 AC IV 12/31 182 Orders Procedure Date/time Status D-DIMER 12/30 183 Complete BRAIN NATRIURETIC PEPTIDE 12/30 183 Complete ELECTROCARDIOGRAM REQUEST 12/30 182 Active CHEST(2 VIEWS-NOT PORTABLE) 12/30 182 Active IV SALINE LOCK 12/30 1824 Active DIRECTOR INTERNATIONAL 12/30 182 Active CBC WITH AUTO DIFF 12/30 1824 Complete CARDIAC ENZYMES 12/30 1824 Complete CHEM 12 PROFILE 12/30 182 Complete 12 LEAD EKG-ERIC (INITIAL) 12/30 UNK Active XRAY/CT/US XRAY/CT/US XRAY chest XR interpretation by reviewed by me Xray Results normal/NAD, no infiltrates (Xiomy MENDOZA,Rufino) Departure Departure Time of Disposition 1958 Condition STABLE Referrals Darrian Godoy APRN (Family) Discharge Counseling Counseled pt/family regarding diagnosis, test results, follow up needs ED Critical Care Critical Care No If Critical Care minutes are documented, the time involved in the performance of seperately reportable procedures was not counted toward critical care time documented. I directly delivered medical care to this critically ill and/or injured patient. Timely evaluation and treatment was necessary to address the significant organ system(s) dysfunction present in this patient. (Xiomy MENDOZA,Rufino) Departure Disposition DC Home or Self Care(routine) Clinical Impression Primary Impression: Upper respiratory infection Qualifiers: URI type: unspecified URI Qualified Code: J06.9 - Acute upper respiratory infection, unspecified Secondary Impressions: Pleurisy, Tobacco use Patient Instructions DI for Pleurisy Additional Instructions use meds and see pcp this week for follow up Discharge Counseling Counseled pt/family regarding diagnosis, test results, medications/RX Prescriptions Current Visit Scripts Azithromycin (Zithromycin (Z-BENJAMÍN) 250MG Tab) 250 MG PO DAILY #6 TAB TAKE TWO (2) TABLETS ON DAY 1, THEN ONE (1) TABLET DAY #2 THRU #5 (Vijay Vinson MD) at 1959 at 2025
--- NOTE | 2016-12-30 18:36 | Emergency Room Report ---
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 N Clinical Suspician of Infection? N Mental Status: 1 - Regular (Normal Baseline) Sepsis Risk:Low Sepsis Risk Have you (or family members/close friends) recently traveled outside the [place]? N If Yes, where/when: Have you had exposure to infectious disease within the past month? N TB? Other? Specify: 36 years old white female smoker, she developed upper respiratory infection and a formal runny nose and dry cough, since yesterday she has been experiencing RIGHT upper chest sharp pain piercing into her back. She denies shortness of breath or palpitations nausea vomiting. The patient denies having hemoptysis hematemesis melanotic stool or bleeding per rectum Source patient, RN notes reviewed, family Exam Limitations no limitations (Xiomy MENDOZA,[facility]) Cardiac Chest Pain Chest pain indicative of cardiac No Timing/Duration this evening Severity moderate ALLERGIES Coded Allergies: lamotrigine (From Lamictal) (Intermediate, I-RASH 12/15/15) codeine (Mild, NA-NAUSEA 12/15/15) Home Medications Active Scripts D-METHORPHAN HB/P-EPD HCL/BPM (Bromfed Dm Cough Syrup) 10 ML PO Q4HP PRN cough #120 SYR Prov: 12/21/16 Fluticasone Propionate (Flonase 50 Mcg Nasal Ayden) 2 SPRAY NA DAILY #1 BOT Prov: 12/21/16 Methylprednisolone (Medrol Dose Benjamín) 4 MG PO UD #1 BENJAMÍN Prov: 12/21/16 Pantoprazole Sodium (Protonix) 40 MG PO DAILY #30 ECT Prov: 12/15/15 Prednisone (Prednisone 20MG) 20 MG PO BID #10 TAB Prov: 11/24/16 Reported Medications Escitalopram Oxalate (Lexapro 20MG) 20 MG PO DAILY (Karel MENDOZA,Vijay Alcantar) History Medical History General CAD? No Angina: No NM: No Hypertension? Yes Hyperlipidemia? No CHF? No DVT? No PE? No COPD? No Asthma? No Anemia? No GERD? Yes Gastric ulcers? No GI Bleed? No Hernia? No Thyroid Problems? No Hypothyroidism? No CVA? No Seizures? No Diabetes? No Insulin Dependent: No Insulin Pump: No Home FSBS? No Renal Insuffiency? No End Stage Renal Disease? No UTI? Yes Stones? No BPH? No GB Disease: Yes Nephritic Syndrome? No Asplenia? No Hepatitis? No Sickle Cell Disease? No Arthritis? No Migraines? No Cataracts? No Glaucoma? No MRSA? No HIV? No TB? No Anxiety? Yes Depression? No Cancer? No Site: CERVICAL DYSPLASIA More? 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 Respiratory no symptoms reported Cardiovascular see HPI, chest pain Gastrointestinal no symptoms reported Genitourinary no symptoms reported. Musculoskeletal no symptoms reported Skin no symptoms reported Psychiatric/Neurological no symptoms reported (Xiomy MENDOZA,Rufino) Physical Exam Vital Signs Vital Signs Date Time Temp Pulse Resp B/P Pulse O2 O2 Flow FiO2 Ox Delivery Rate 12/30 2020 85 18 151/102 96 12/30 1921 62 18 171/106 99 12/31 1919 18 12/30 1826 98.4 73 18 151/78 99 - WBC >12,000 or <4,000 or 10% bands? 2 or more SIRS Criteria Met? B/P:151/78 MAP:102 Creatinine >2.0? UA output<0.5ml/kg/hr for 2 hrs? Platelet count >100,000? Lactate >2.0mmol/1? INR >1.2 or PTT > than 60 sec? Evidence of Organ Dysfunction? Provider documented clinical suspician of infection? N Sepsis Criteria Count: 0 Sepsis Risk: Low Sepsis Risk General Appearance normal appearance, WD/WN Eye Exam - bilateral eye normal exam, bilateral eye PERRL, bilateral eye EOMI Ear, Nose, Throat hearing grossly normal, normal ENT inspection Neck normal inspection, non-tender, supple, full range of motion Respiratory Status Yes: trachea midline, chest symmetrical, non tender chest. No: respiratory distress. Lung Sounds bilateral: normal breath sounds, lungs clear. Cardiovascular normal exam, regular rate/rhythm, no peripheral edema, no gallop, no JVD, no murmur, no rub, normal peripheral pulses Peripheral Pulses Pulses normal Yes Gastrointestinal normal bowel sounds, normal exam, non tender, soft, no organomegaly Back normal inspection, no CVA tenderness, no vertebral tenderness Extremities non-tender, normal range of motion, normal inspection Neurologic alert, mail reader II-XII nml as tested, normal exam, oriented x 3 Reflexes Reflexes normal Yes Mental status normal mood/affect Skin intact, normal color, warm/dry (Xiomy MENDOZA,[facility]) Medical Decision Making LABS/Meds/Orders Pt receiving controlled substance in ED? No Results/Orders Laboratory Tests 12/30/161934: B-Natriuretic Peptide 52 12/30/161934: Sodium 138, Potassium 3.8, Chloride 103, Carbon Dioxide 29, BUN 8, Creatinine 0.7, Estimated Creat Clear 183, Estimated GFR (MDRD) 96, Glucose 87, Calcium 9.4 , Total Bilirubin 0.5, AST 33, ALT 50, Alkaline Phosphatase 114, Creatine Kinase 50, CK-MB (CK-2) Rel Index 1.0, CK and CKMB Interp < 0.5, Troponin I < 0.02, Total Protein 8.4 H, Albumin 3.9, Globulin 4.5 H, Albumin/Globulin Ratio 0.9 L, D-Dimer 311, WBC 7.7, RBC 5.14, Hgb 14.6, Hct 44.8, MCV 87.1, RDW 12.2, Plt Count 255, MPV 7.9, Gran % 48.3, Gran # 3.7, Lymphocytes % 44.3, Monocytes % 5.1 , Eosinophils % 1.5, Basophils % 0.9, Lymphocytes # 3.4, Monocytes # 0.4, Eosinophils # 0.1, Basophils # 0.1, PUBS MCHC 32.5, MCH 28.3 Current Medication Orders Sig/Nedra Start time Last Medication Dose Route Stop Time Status Admin Levofloxacin 500 MG ONCE ONE 12/30 2029 AC PO 12/30 2030 Methylprednisolone 125 MG ONCE ONE 12/30 2029 AC Sodium Succinate IV 12/30 2030 Ketorolac 0 .STK-MED ONE 12/30 191 DC Tromethamine .ROUTE Ketorolac 30 MG ONCE ONE 12/30 1844 DC 12/30 Tromethamine IV 12/30 1845 192 Sodium Chloride 10 ML PRN PRN 12/30 183 AC IV 12/31 182 Orders Procedure Date/time Status D-DIMER 12/30 183 Complete BRAIN NATRIURETIC PEPTIDE 12/30 183 Complete ELECTROCARDIOGRAM REQUEST 12/30 182 Active CHEST(2 VIEWS-NOT PORTABLE) 12/30 182 Active IV SALINE LOCK 12/30 1824 Active GUARD SUPERVISOR 12/30 182 Active CBC WITH AUTO DIFF 12/30 1824 Complete CARDIAC ENZYMES 12/30 1824 Complete CHEM 12 PROFILE 12/30 182 Complete 12 LEAD EKG-ERIC (INITIAL) 12/30 UNK Active XRAY/CT/US XRAY/CT/US XRAY chest XR interpretation by reviewed by me Xray Results normal/NAD, no infiltrates (Xiomy MENDOZA,Rufino) Departure Departure Time of Disposition 1958 Condition STABLE Referrals Darrian Godoy APRN (Family) Discharge Counseling Counseled pt/family regarding diagnosis, test results, follow up needs ED Critical Care Critical Care No If Critical Care minutes are documented, the time involved in the performance of seperately reportable procedures was not counted toward critical care time documented. I directly delivered medical care to this critically ill and/or injured patient. Timely evaluation and treatment was necessary to address the significant organ system(s) dysfunction present in this patient. (Xiomy MENDOZA,Rufino) Departure Disposition DC Home or Self Care(routine) Clinical Impression Primary Impression: Upper respiratory infection Qualifiers: URI type: unspecified URI Qualified Code: J06.9 - Acute upper respiratory infection, unspecified Secondary Impressions: Pleurisy, Tobacco use Patient Instructions DI for Pleurisy Additional Instructions use meds and see pcp this week for follow up Discharge Counseling Counseled pt/family regarding diagnosis, test results, medications/RX Prescriptions Current Visit Scripts Azithromycin (Zithromycin (Z-BENJAMÍN) 250MG Tab) 250 MG PO DAILY #6 TAB TAKE TWO (2) TABLETS ON DAY 1, THEN ONE (1) TABLET DAY #2 THRU #5 (Vijay Vinson MD) at 1959 at 2025
--- OUTSIDE RECORDS SUMMARY | 2016-12-30 18:48 | External Medical Summary Rpt | CCD ---
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 03:05 (volume fractio n) Granulo = 47.5 37.0-80 complet cyte 017 % .0 ed percent 03:05 age Blood = 3.0 1.8-7.8 complet granulo 017 K/mm3 ed cytes 03:05 automat ed count (numb Automat = 1.4 % 0.1-12. complet ed 017 0 ed blood 03:05 eosinop hils/10 0 leukocy t Automat = 0.1 0.0-0.4 complet ed 017 K/mm3 ed blood 03:05 eosinop hil count Baso % = 0.6 % 0.1-2.0 complet 017 ed 03:05 Automat = 0.0 0-0.2 complet ed 017 K/MM3 ed blood 03:05 basophi l count (count/ vo Comprehensive metabolic panel (11-24-2016 03:05) Protein = 7.7 6.4-8.2 complet total 017 gm/dL ed ser/tito 03:05 s ALT = 34 12-78 complet (SGPT) 017 U/L ed ser/tito 03:05 s Serum = 18 15-37 complet or 017 U/L ed plasma 03:05 asparta te aminotr ansfera Serum = 138 136-145 complet sodium 017 mmoL/L ed measure 03:05 ment Serum = 3.3 3.5-5.1 complet potassi 017 mmoL/L ed um 03:05 measure ment Serum = 104 74-106 complet or 017 mg/dL ed plasma 03:05 glucose measure ment (mas Serum = 4.1 1.3-3.2 complet globuli 017 gm/dL ed n 03:05 measure ment (mass/v olume) Estimat = 114 59- complet ed 017 ML/MIN ed glomeru 03:05 lar filtrat ion rate (GF Comment: REFERENCE RANGE: >60 ML/MIN/1.73 SQUARE METERS Comment: If this patient is -Ecuadorean, then multiply the Comment: result by 1.210. Estimat = 214 50-200 complet ion of 017 ML/MIN ed creatin 03:05 ine renal clearan ce Serum = 0.6 0.55-1. complet or 017 mg/dL 02 ed plasma 03:05 creatin ine measure ment ( Carbon = 26 21.0-32 complet dioxide 017 mmoL/L .0 ed 03:05 measure ment Serum = 105 98-107 complet or 017 mmoL/L ed plasma 03:05 chlorid e measure ment (mo Serum = 9.0 8.5-10. complet or 017 mg/dL 1 ed plasma 03:05 calcium measure ment (mas Serum = 11 7-18 complet or 017 mg/dL ed plasma 03:05 urea nitroge n measure men Serum = 0.5 0.2-1.0 complet or 017 mg/dL ed plasma 03:05 total bilirub in measure m Serum = 93 46-116 complet or 017 U/L ed plasma 03:05 alkalin e phospha tase ron Serum = 3.6 3.4-5.0 complet or 017 gm/dL ed plasma 03:05 albumin measure ment (mas Serum = 0.9 1.1-1.8 complet or 017 ed plasma 03:05 albumin /globul in mass ra Streptococcus pyogenes Ag [Presence] in Unspecified specimen (09-05-2016 13:31) Strepto NOT NOTDETE complet coccus 0[address]ED ed pyogene 13:31 D s Ag [Presen ce] in Unspeci fied specime n B-HCG Ur Ql (04-08-2013 13:14) B-HCG NEGATIV NEG complet Ur Ql 014 E ed 13:14 URINALYSIS/COMPLETE (04-08-2013 13:14) URINE YELLOW YELLOW complet COLOR 014 ed 13:14 URINE CLEAR CLEAR complet APPEARA 014 ed NCE 13:14 URINE 2 NEGATIV NEG complet GLUCOSE 014 E ed - 13:14 DIPSTIC K URINE 2 NEGATIV NEG complet BILIRUB 014 E ed IN - 13:14 DIPSTIC K URINE 2 NEGATIV NEG complet KETONE 014 E mg/dL ed 13:14 URINE 2 Greater 1.005-1 complet SPECIFI 014 than .030 ed C 13:14 or GRAVITY equal to 1.030 URINE 2 2+ NEG complet BLOOD 014 ed 13:14 URINE 04-08-2 6.0 UNK 5.0-8.5 complet PH 014 ed 13:14 URINE 2+ NEG complet PROTEIN 014 mg/dL ed - 13:14 DIPSTIC K URINE 04-08-2 0.2 NEG complet UROBILI 014 E.U./dL ed NOGEN - 13:14 DIPSTIC K URINE POSITIV NEG complet NITRATE 014 E ed - 13:14 DIPSTIC K URINE 1+ NEG complet LEUK 014 ed ESTERAS 13:14 E URINE 10-20 0 complet RBC 014 rbc/hpf ed 13:14 URINE 04-08- 3-5 O complet WBC 014 wbc/hpf ed 13:14 URINE 20-50 0-5 complet SQUAMOU 014 #/hpf ed S CELLS 13:14 URINE 04-08-2 2+ O complet BACTERI 014 ed A 13:14 STREP SCREEN (RAPID) (12-31-2012 15:32) STREP POSITIV complet SCREEN 013 E ed (RAPID) 15:32 BASIC METABOLIC PANEL (08-28-2012 17:50) Glucose 101 74-106 complet 013 mg/dL ed Bld-mCn 17:50 c BUN 8 mg/dL 7-18 complet Bld-mCn 013 ed c 17:50 Creat 0.7 0.6-1.0 complet SerPl-m 013 mg/dL ed Cnc 17:50 ESTIMAT 167 50-200 complet ED 013 ML/MIN ed CREATIN 17:50 INE CLEARAN CE GFR 99 59- complet (ESTIMA 013 ML/MIN ed BLACK) 17:50 Sodium 137 136-145 complet SerPl-s 013 mmoL/L ed Cnc 17:50 Potassi 3.6 3.5-5.1 complet um 013 mmoL/L ed SerPl-s 17:50 Cnc Chlorid 102 98-107 complet e 013 mmoL/L ed SerPl-s 17:50 Cnc CO2 28 21.0-32 complet SerPl-s 013 mmoL/L .0 ed Cnc 17:50 Calcium 8.7 8.5-10. complet 013 mg/dL 1 ed SerPl-m 17:50 Cnc THYROID STIM HORMONE (08-28-2012 17:50) THYROID 1.67 0.358-3 complet STIM 013 uIU/ml .740 ed HORMONE 17:50 CBC with AUTO DIFF (08-28-2012 17:50) WBC # 08-28-2 8.6 4.8-10. complet Bld 013 K/MM3 8 ed Auto 17:50 RBC # 08-28-2 4.90 4.2-5.4 complet Bld 013 M/mm3 ed Auto 17:50 Hgb 14.4 12.2-16 complet Bld-mCn 013 g/dL .2 ed c 17:50 Hct Fr 43.3 % 37.0-47 complet Bld 013 .0 ed 17:50 MCV RBC 08-28- 88.4 fl 82.2-97 complet 013 .8 ed 17:50 MCH RBC 08-28- 29.4 pg 27-31.2 complet Qn 013 ed Auto 17:50 MEAN 08-28- 33.2 31.8-35 complet CORPUSC 013 g/dl .4 ed ULAR 17:50 HGB CONC RDW RBC 08-28-2 12.5 % 11.5-17 complet Auto 013 .5 ed 17:50 Platele 08-28- 281 142-424 complet t Bld 013 K/mm3 ed Ql 17:50 Manual MEAN 08-28- 7.5 fl 7.4-10. complet PLATELE 013 4 ed T 17:50 VOLUME Granulo 58.0 % 37.0-80 complet cytes 013 .0 ed Fr Bld 17:50 Auto LYMPH % 07-13-2 35.1 % 10-50.0 complet 013 ed 17:50 Monocyt 07-13-2 4.4 % 1.7-9.3 complet es Fr 013 ed Bld 17:50 Auto Eosinop 07-13-2 1.8 % 0.1-12. complet hil Fr 013 0 ed Bld 17:50 Auto Basophi 07-13-2 0.6 % 0.1-2.0 complet ls Fr 013 ed Bld 17:50 Auto Granulo 07-13-2 5.0 1.8-7.8 complet cytes # 013 K/mm3 ed Bld 17:50 Auto Lymphoc 07-13-2 3.0 0.7-4.5 complet ytes Fr 013 K/mm3 ed Bld 17:50 Auto Monocyt 07-13-2 0.4 0.1-1.0 complet es # 013 K/mm3 ed Bld 17:50 Auto Eosinop 07-13-2 0.2 0.0-0.4 complet hil # 013 K/mm3 ed Bld 17:50 Auto Basophi 07-13-2 0.1 0-0.2 complet ls # 013 K/MM3 ed Bld 17:50 Auto Procedures Procedure DOS Code Location Performer Comment APPLICATI 93.54 Jhonathan ON OF Harjinder MENDOZA SPLINT Encounters Encounter Start End Date Code Location Performer Type Date Emergency MALIKA Jones MD (ER) 4 13:23 4 14:41 [facility] Emergency MALIKA ALVA MD (ER) 3 16:16 3 16:16 [facility] Emergency MALIKA VO (ER) 3 02:40 3 02:40 [facility] [place]AM[place] Emergency MALIKA Rivera MD (ER) 3 17:21 3 18:49 [facility] er R. Emergency MALIKA Jacob (ER) 3 21:05 3 21:23 [facility] Emergency MALIKA Grande MD (ER) 3 08:33 3 08:57 [facility]
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
--- OUTSIDE RECORDS SUMMARY | 2016-12-30 18:50 | External Medical Summary Rpt | CCD ---
Demographics Preferred Language Divehi Marital Status Unknown Quaker Affiliation Unknown Race Unknown Ethnic Group Unknown Author Author , SHAY DAY Address Unknown Phone [email or web address] Care Team Providers Care Ingot Supervisor Name Role Phone [facility], Unavailable Unavailable [facility] # [id number], Unavailable Unavailable [facility] # [id number] [facility] Unavailable Unavailable [id number] # [phone], [facility] [id number] # [id number] Purpose Continuity of Care Document - 04-16-2009 through 2016 Medications Na ND Rx Da Fi Fi Am Da Di Ph RX Ph St me C No te ll ll ou ys ag ar # ys at rm s nt no ma ic us Or Da si cy ia de te s n re d AB 59 09 10 1 30 30 [...] 0 60 30 CL 24 WR Ac TX 18 -2 -2 .0 IN 27 IG [...] 2 60 30 CL 23 RI Ac TX 18 -2 -2 .0 IN 73 SH [...] 20 ZA 19 11 11 PH RI TX 9 AR CH IN MA AR E [...] 1 60 30 CL 24 RI Ac TX 74 -1 -2 .0 IN 08 SH [...] 2 60 30 CL 23 RI Ac TX 18 -2 -2 .0 IN 73 SH [...] 20 ZA 19 11 11 PH RI TX 9 AR CH IN MA AR E [...] 30 CL 23 RI Ac ON 09 2 -2 .0 IN 73 SH ti AZ [...] 20 ZA 70 11 11 PH RI TX 6 AR CH IN MA AR E CY D 10 LL MG C TA BL ET PA 68 04 04 2 30 30 CL 23 RI Ac RO 38 -2 -2 .0 IN 73 SH ti XE 20 8- 8- 00 IC 88 ER ve TI 09 20 20 NE 80 11 11 PH RI 1 AR CH HC MA AR L CY D 20 LL MG C TA BL ET BU 00 04 04 2 60 30 CL 23 RI Ac TX 18 -2 -2 .0 IN 73 SH ti OP 50 8- 8- 00 IC 89 ER ve IO 41 20 20 N 50 11 11 PH RI HC 1 AR CH L MA AR SR CY D 15 LL 0 C MG TA BL ET CL 00 01 03 2 90 30 CL 23 RI Ac ON -1 .0 IN 04 SH ti AZ 30 1- 4- 00 IC 38 ER ve EP 83 20 20 AM 30 11 11 PH RI 1 5 AR CH MA AR MG CY D TA LL BL C ET FL 50 01 03 2 60 30 CL 23 RI Ac UO 11 -1 -1 .0 IN 04 SH ti XE 10 1- 0- 00 IC 36 ER ve TI 64 20 20 NE 80 11 11 PH RI 1 AR CH HC MA AR L CY D 20 LL MG C CA PS UL E BU 00 01 03 2 60 30 CL 23 RI Ac TX 18 -1 -1 .0 IN 04 SH ti OP 50 1- 0- 00 IC 37 ER ve IO 41 20 20 N 50 11 11 PH RI HC 1 AR CH L MA AR SR CY D 15 LL 0 C MG TA BL ET CL 00 01 02 2 90 30 CL 23 RI Ac ON 09 -1 -1 .0 IN 04 SH ti AZ 30 1- 0- 00 IC 38 ER ve EP 83 20 20 AM 30 11 11 PH RI 1 5 AR CH MA AR MG CY D TA LL BL C ET FL 50 01 02 2 60 30 CL 23 RI Ac UO 11 -1 -0 .0 IN 04 SH ti XE 10 1- 8- 00 IC 36 ER ve TI 64 20 20 NE 80 11 11 PH RI 1 AR CH HC MA AR L CY D 20 LL MG C CA PS UL E BU 00 01 02 2 60 30 CL 23 RI Ac TX 18 -1 -0 .0 IN 04 SH ti OP 50 1- 8- 00 IC 37 ER ve IO 41 [...] .0 IN 17 SH ti IN 12 1- 1- 00 IC 31 ER ve IR 17 20 20 66 11 11 PH RI 30 0 AR CH 0 MA AR MG CY D CA LL PS C UL E 60 02 02 0 12 3 CL 23 RI Ac 25 -0 -0 0. IN 17 SH ti 80 1- 1- 00 IC 32 ER ve 23 20 20 0 91 11 11 PH RI 6 AR CH MA AR CY D LL C FL 50 01 01 2 60 30 CL 23 RI Ac UO 11 -1 -1 .0 IN 04 SH ti XE 10 1- 1- 00 IC 36 ER ve TI 64 20 20 NE 80 11 11 PH RI 1 AR CH HC MA AR L CY D 20 LL MG C CA PS UL E BU 00 01 01 2 60 30 CL 23 RI Ac TX 18 -1 -1 .0 IN 04 SH ti OP 50 1- 1- 00 IC 37 ER ve IO 41 20 20 N 50 11 11 PH RI HC 1 AR CH L MA AR SR CY D 15 LL 0 C MG TA BL ET CL 00 01 01 2 90 30 CL 23 RI Ac ON 09 -1 -1 .0 IN 04 ti AZ 30 1- 00 IC 38 ER ve EP 83 20 20 AM 30 11 11 PH RI 1 5 AR CH MA AR MG CY D TA LL BL C ET 00 01 01 0 53 28 CL 23 RI Ac 06 -1 -1 .0 IN 04 ti 90 IC 39 ER ve 47 20 20 19 11 11 PH RI 7 AR CH MA AR CY D LL C CE 00 01 01 0 21 7 CL 23 GA Ac PH 14 -1 -1 .0 IN 04 IN ti AL 39 1- 1- 00 IC 42 EY ve EX 89 20 20 IN 70 11 11 PH AK 5 AR CH 50 MA AE 0 [...] 70 SH ti XE 10 8- 8- 00 IC 67 ER ve TI 64 20 20 NE 80 10 10 PH RI 1 AR CH HC MA AR L CY D 20 LL MG C CA PS UL E BU 00 11 11 0 60 30 CL 22 RI Ac TX 18 -1 -1 .0 IN 70 SH ti OP 50 8- 8- 00 IC 68 ER ve IO 41 20 20 N 50 10 10 PH RI HC 1 AR CH L MA AR SR CY D 15 LL 0 C MG TA BL ET CL 00 11 11 0 90 30 CL 22 RI Ac ON -1 .0 IN 70 SH ti AZ [...] 2 60 30 CL 22 RI Ac TX 18 -1 -2 .0 IN 33 SH [...] CL 22 RI Ac ON 09 -1 .0 IN 47 SH ti AZ [...] TA C BL ET KAILEY 00 04 09 5 1. 30 CL 21 CL Ac TX 07 -2 -2 00 IN 52 AR ti ON 43 6- 7- 0 IC 19 KE ve 64 20 20 DE 10 10 10 PH DE PO 3 AR RE T MA K 3. CY J 75 LL MG C KI T CL 00 09 09 0 30 10 CL 22 RI Ac ON 09 -2 -2 .0 IN 39 SH ti AZ 30 7- 7- 00 IC 13 ER ve EP 83 20 20 AM 31 10 10 PH RI 1 0 AR CH MA AR MG CY D TA LL BL C ET CI 00 09 09 3 30 30 CL 22 RI Ac TA 37 -2 -2 .0 IN 35 SH ti LO 86 0- 0- 00 IC 05 ER ve TX 23 20 20 AM 30 10 10 PH RI 1 AR CH HB MA AR R CY D 40 LL MG C TA BL ET NA 53 09 09 1 60 30 CL 22 RI Ac TX 74 -1 -1 .0 IN 33 SH ti OX 60 6- 6- 00 IC 18 ER ve EN 19 20 20 00 10 10 PH RI 50 5 AR CH 0 MA AR MG CY D TA LL BL C ET BU 00 09 09 2 60 30 CL 22 RI Ac TX 18 -1 -1 .0 IN 33 SH [...] 5 1. 30 CL 21 CL Ac TX 07 -2 -2 00 IN 52 AR [...] 1 60 30 CL 22 CL Ac TX 74 -2 -2 .0 IN 02 AR ti OX 60 3- 3- 00 IC 08 KE ve EN 19 20 20 00 10 10 PH DE 50 5 AR RE 0 MA K MG CY J TA LL BL C ET KAILEY 00 04 07 5 1. 30 CL 21 CL Ac TX 07 -2 -2 00 IN 52 AR [...] J MG LL TA C BL ET TX 00 06 06 0 21 21 CL [...] 5 1. 30 CL 21 CL Ac TX 07 -2 -2 00 IN 52 AR [...] 5 1. 30 CL 21 CL Ac TX 07 -2 -2 00 IN 52 AR [...] 5 1. 30 CL 21 CL Ac TX 07 -2 -2 00 IN 52 AR [...] CY J TA LL BL C ET TX 00 04 04 0 12 4 CL [...] MP LL C SS TA BL ET TX 00 04 04 0 15 5 CL 21 HU Ac ED 60 -0 -0 .0 IN 40 NT ti NI 35 6- 6- 00 IC 59 ER ve SO 33 20 20 NE 72 10 10 PH NA 5 1 AR NC MA Y MG CY C TA LL BL C ET TX 68 03 03 0 14 4 CL [...] MP CY BE LL LL K C TX 68 03 03 0 10 3 CL [...] 1- 1- 00 IC 77 EN ve TX 23 20 20 CE AM 30 10 [...] CE 10 1- 1- 00 IC 80 AK ve T 60 20 20 E 5- 28 10 10 PH JR 32 5 AR 5 MA WI TA CY LL BL IA ET LL M C F
--- OUTSIDE RECORDS SUMMARY | 2016-12-30 18:50 | External Medical Summary Rpt | CCD ---
Demographics Preferred Language Upper Sorbian Marital Status Unknown Presybeterian Affiliation Unknown Race Unknown Ethnic Group Unknown Author Author , SHAY DAY Address Unknown Phone [email or web address] Care Team Providers Care Public Address Technician Name Role Phone [facility], Unavailable Unavailable [facility] # [id number], Unavailable Unavailable [facility] # [id number] [facility] Unavailable Unavailable [id number] # [phone], [facility] [id number] # [id number] Purpose Continuity of Care Document [...] 0 60 30 CL 24 WR Ac ME 18 -2 -2 .0 IN 27 IG [...] 2 60 30 CL 23 RI Ac ME 18 -2 -2 .0 IN 73 SH [...] 20 ZA 19 11 11 PH RI ME 9 AR CH IN MA AR E [...] 1 60 30 CL 24 RI Ac ME 74 -1 -2 .0 IN 08 SH [...] 2 60 30 CL 23 RI Ac ME 18 -2 -2 .0 IN 73 SH [...] 20 ZA 19 11 11 PH RI ME 9 AR CH IN MA AR E [...] 20 ZA 70 11 11 PH RI ME 6 AR CH IN MA AR E [...] 2 60 30 CL 23 RI Ac ME 18 -2 -2 .0 IN 73 SH [...] 2 60 30 CL 23 RI Ac ME 18 -1 -1 .0 IN 04 SH [...] 2 60 30 CL 23 RI Ac ME 18 -1 -0 .0 IN 04 SH [...] 2 60 30 CL 23 RI Ac ME 18 -1 -1 .0 IN 04 SH [...] 20 20 IN [address] 5 AR CH 50 MA AE 0 [...] 0 60 30 CL 22 RI Ac ME 18 -1 -1 .0 IN 70 SH [...] 2 60 30 CL 22 RI Ac ME 18 -1 -2 .0 IN 33 SH [...] 5 1. 30 CL 21 CL Ac ME 07 -2 -2 00 IN 52 AR [...] 0- 0- 00 IC 05 ER ve ME 23 20 20 AM 30 10 10 PH RI 1 AR CH HB MA AR R CY D 40 LL MG C TA BL ET NA 53 09 09 1 60 30 CL 22 RI Ac ME 74 -1 -1 .0 IN 33 SH ti OX 60 6- 6- 00 IC 18 ER ve EN 19 20 20 00 10 10 PH RI 50 5 AR CH 0 MA AR MG CY D TA LL BL C ET BU 00 09 09 2 60 30 CL 22 RI Ac ME 18 -1 -1 .0 IN 33 SH [...] 5 1. 30 CL 21 CL Ac ME 07 -2 -2 00 IN 52 AR [...] 1 60 30 CL 22 CL Ac ME 74 -2 -2 .0 IN 02 AR ti OX 60 3- 3- 00 IC 08 KE ve EN 19 20 20 00 10 10 PH DE 50 5 AR RE 0 MA K MG CY J TA LL BL C ET KAILEY 00 04 07 5 1. 30 CL 21 CL Ac ME 07 -2 -2 00 IN 52 AR [...] J MG LL TA C BL ET ME 00 06 06 0 21 21 CL [...] 5 1. 30 CL 21 CL Ac ME 07 -2 -2 00 IN 52 AR [...] 5 1. 30 CL 21 CL Ac ME 07 -2 -2 00 IN 52 AR [...] 5 1. 30 CL 21 CL Ac ME 07 -2 -2 00 IN 52 AR [...] CY J TA LL BL C ET ME 00 04 04 0 12 4 CL [...] MP LL C SS TA BL ET ME 00 04 04 0 15 5 CL 21 HU Ac ED 60 -0 -0 .0 IN 40 NT ti NI 35 6- 6- 00 IC 59 ER ve SO 33 20 20 NE 72 10 10 PH NA 5 1 AR NC MA Y MG CY C TA LL BL C ET ME 68 03 03 0 14 4 CL [...] MP CY BE LL LL K C ME 68 03 03 0 10 3 CL [...] 1- 1- 00 IC 77 EN ve ME 23 20 20 CE AM 30 10 [...] CE 10 1- 1- [address] ve T 60 20 20 E 5- 28 10 10 PH JR 32 5 AR 5 MA WI TA CY LL BL IA ET LL M C F
--- OUTSIDE RECORDS SUMMARY | 2016-12-30 18:51 | External Medical Summary Rpt | CCD ---
Demographics Preferred Language Marshallese Marital Status Unknown Faith Affiliation Unknown Race Unknown Ethnic Group Unknown Author Author , SHAY DAY Address Unknown Phone Immunization No patient found.
--- OUTSIDE RECORDS SUMMARY | 2016-12-30 18:51 | External Medical Summary Rpt ---
Author Author DALLASCARROL Fournier, [employer] Organization [employer] Address Unknown Phone Unavailable Results Influenza virus A+B Ag [Presence] in Unspecified specimen Observa Value Referen Units Interpr Notes Date tion ce etation Range Influen NOT NOT No No No Nov 5 za DETECTE DETECTD informa informa informa 2017 virus A D tion in tion in tion in 9:37 AM Ag source source source [Presen data data data ce] in Unspeci fied specime n INFLUEN NOT NOT No No LOT # Dec 21 ZA B DETECTE DETECTD informa informa @[id number] ANTIGEN D tion in tion in 4 EXP 9:37 AM source source DATE data data @11-15 Streptococcus pyogenes Ag [Presence] in Unspecified specimen Observa Value Referen Units Interpr Notes Date tion ce etation Range Strepto NOT NOTDETE No No LOT # Dec 21 coccus DETECTE CTED informa informa @[id number] pyogene D tion in tion in 2 EXP 9:37 AM s Ag source source DATE [Presen data data @ ce] in 10-19 Unspeci fied specime n Erythrocyte sedimentation rate by Westergren method Observa Value Referen Units Interpr Notes Date tion ce etation Range Erythrocy 0 - 20 mm/hr Normal No Nov 27ati 2016 1:12 sedimenta on in PM tion rate source by data Westergre n method CRP Observa Value Referen Units Interpr Notes Date tion ce etation Range CRP 0.0 - 0.9 MG/DL Normal No Nov 27 inform2016 1:12 on in PM source data CBC W Auto Differential panel in Blood Observa Value Referen Units Interpr Notes Date tion ce etation Range Basophils 0 - 0.2 K/MM3 Normal No Nov 242016 3:05 [#/volume on in AM ] in source Blood by data Automated count Basophils 0.1 - 2.0 % Normal No Nov 24 informati 2016 3:05 leukocyte on in AM s in source Blood by data Automated count Eosinophi 0.0 - 0.4 K/mm3 Normal No Nov 24 ls informati 2016 3:05 [#/volume on in AM ] in source Blood by data Automated count Eosinophi 0.1 - % Normal No Nov 24 ls/100 12.0 informati 2016 3:05 leukocyte on in AM s in source Blood by data Automated count Granulocy 1.8 - 7.8 K/mm3 Normal No Nov 24 digna informati 2016 3:05 [#/volume on in AM ] in source Blood by data Automated count Granulocy 37.0 - % Normal No Nov 24 digna/100 80.0 informati 2016 3:05 leukocyte on in AM s in source Blood by data Automated count Hematocri 37.0 - % Normal No Nov 24 t [Volume 47.0 informati 2016 3:05 on in AM Fraction] source of Blood data Hemoglobi 12.2 - g/dL No No Nov 24 n 16.2 informati informati 2016 3:05 [Mass/vol on in on in AM ume] in source source Blood data data Lymphocyt 0.7 - 4.5 K/mm3 Normal No Nov 24 es informati 2016 3:05 [#/volume on in AM ] in source Unspecifi data ed specimen by Automated count Lymphocyt 10 - 50.0 % Normal No Nov 24 es informati 2016 3:05 [#/volume on in AM ] in source Unspecifi data ed specimen by Automated count Erythrocy 27 - 31.2 pg Normal No Nov 24 te mean informati 2016 3:05 corpuscul on in AM ar source hemoglobi data n [Entitic mass] Erythrocy 31.8 - g/dl Normal No Nov 24 te mean 35.4 informati 2016 3:05 corpuscul on in AM ar source hemoglobi data n concentra tion [Mass/vol ume] by Automated count Erythrocy 82.2 - fl Normal No Nov 24 te mean 97.8 informati 2016 3:05 corpuscul on in AM ar volume source [Entitic data volume] by Automated count Monocytes 0.1 - 1.0 K/mm3 Normal No Nov 24 inform2016 3:05 [#/volume on in AM ] in source Blood by data Automated count Monocytes 1.7 - 9.3 % Normal No Oct 9 /100 informati 2016 3:05 leukocyte on in AM s in source Blood by data Automated count Platelet 7.4 - fl Normal No Nov 9 mean 10.4 informati 2016 3:05 volume on in AM [Entitic source volume] data in Blood by Automated count Platelets 142 - 424 K/mm3 No No Nov 9 informati informati 2016 3:05 [#/volume on in on in AM ] in source source Blood data data Erythrocy 4.2 - 5.4 M/mm3 Normal No Nov 24 digna informati 2016 3:05 [#/volume on in AM ] in source Amniotic data fluid Erythrocy 11.5 - % Normal No Nov 24 te 17.5 informati 2016 3:05 distribut on in AM ion width source [Entitic data volume] by Automated count Leukocyte 4.8 - K/MM3 Normal No Nov 24 s 10.8 informati 2016 3:05 [#/volume on in AM ] in source Blood data Erythrocyte sedimentation rate by Westergren method Observa Value Referen Units Interpr Notes Date tion ce etation Range Erythrocy 0 - 20 mm/hr High No Nov 24 te informati 2016 3:05 sedimenta on in AM tion rate source by data Westergre n method Comprehensive metabolic 2000 panel in Serum or Plasma Observa Value Referen Units Interpr Notes Date tion ce etation Range Albumin/G 1.1 - 1.8 No Low No Nov 24 lobulin informati informati 2016 3:05 [Mass on in on in AM ratio] in source source Serum or data data Plasma Albumin 3.4 - 5.0 gm/dL Normal No Nov 24 [Mass/vol informati 2016 3:05 ume] in on in AM Serum or source Plasma data Alkaline 46 - 116 U/L Normal No Nov 24 phosphata informati 2016 3:05 se on in AM [Enzymati source c data activity/ volume] in Serum or Plasma Bilirubin 0.2 - 1.0 mg/dL Normal No Nov 24 .total informati 2016 3:05 [Mass/vol on in AM ume] in source Serum or data Plasma Urea 7 - 18 mg/dL Normal No Nov 24 nitrogen informati 2016 3:05 [Mass/vol on in AM ume] in source Serum or data Plasma Calcium 8.5 - mg/dL Normal No Nov 24 [Mass/vol 10.1 informati 2016 3:05 ume] in on in AM Serum or source Plasma data Chloride 98 - 107 mmoL/L Normal No Oct 9 [Moles/vo informati 2016 3:05 lume] in on in AM Serum or source Plasma data Carbon 21.0 - mmoL/L Normal No Nov 9 dioxide, 32.0 informati 2016 3:05 total on in AM [Moles/vo source lume] in data Serum or Plasma Creatinin 0.55 - mg/dL Normal No Nov 9 e 1.02 informati 2016 3:05 [Mass/vol on in AM ume] in source Serum or data Plasma Creatinin 50 - 200 ML/MIN High No Nov 9 e renal informati 2016 3:05 clearance on in AM source predicted data by Cockcroft -Gault formula Estimated 59- ML/MIN No REFERENCE Nov 9 informati RANGE: 2017 3:05 glomerula on in >60 AM r source ML/MIN/1. filtratio data 73 SQUARE n rate METERSIf (GF this patient is -A merican, then multiply theresult by 1.210. Globulin 1.3 - 3.2 gm/dL High No Nov 9 [Mass/vol informati 2016 3:05 ume] in on in AM Serum source data Glucose 74 - 106 mg/dL Normal No Nov 9 [Mass/vol informati 2016 3:05 ume] in on in AM Serum or source Plasma data Potassium 3.5 - 5.1 mmoL/L Low No Nov 9 informati 2016 3:05 [Moles/vo on in AM lume] in source Serum or data Plasma Sodium 136 - 145 mmoL/L Normal No Nov 9 [Moles/vo informati 2016 3:05 lume] in on in AM Serum or source Plasma data Aspartate 15 - 37 U/L Normal No Nov 9 informati 2016 3:05 aminotran on in AM sferase source [Enzymati data c activity/ volume] in Serum or Plasma Alanine 12 - 78 U/L Normal No Nov 9 aminotran informati 2016 3:05 sferase on in AM [Enzymati source c data activity/ volume] in Serum or Plasma Protein 6.4 - 8.2 gm/dL Normal No Nov 9 [Mass/vol informati 2016 3:05 ume] in on in AM Serum or source Plasma data Streptococcus pyogenes Ag [Presence] in Unspecified specimen [...]
--- OUTSIDE RECORDS SUMMARY | 2016-12-30 18:51 | External Medical Summary Rpt | CCD ---
Demographics Preferred Language New Zealander Marital Status Unknown Gnosticism Affiliation Unknown Race Unknown Ethnic Group Unknown Author Author , [facility] [employer] Address Unknown Phone Immunization No patient found.
--- OUTSIDE RECORDS SUMMARY | 2016-12-30 18:51 | External Medical Summary Rpt ---
[...] 21 ZA B DETECTE DETECTD informa informa @[id number] ANTIGEN D tion in tion in 4 EXP 9:37 AM source source DATE data data @11-15 Streptococcus pyogenes Ag [Presence] in Unspecified specimen Observa Value Referen Units Interpr Notes Date tion ce etation Range Strepto NOT NOTDETE No No LOT # Dec 21 coccus DETECTE CTED informa informa @[id number] pyogene D tion in tion in 2 [...]
[2016-12-30 19:46] LABS: HEMOGLOBIN 14.6 g/dL (12.2-16.2); LYMPH # 3.4 K/mm3 (0.7-4.5); LYMPH % 44.3 % (10-50.0)
[2016-12-30 20:10] LABS: BUN 8 mg/dL (7-18); GFR (ESTIMATED) 96 ML/MIN (59-)
[2016-12-30] MEDS ORDERED: ZITHROMAX Z PA250 MG PO (20:25)
[2016-12-30 20:40] VITALS: BP 151/102
--- NOTE | 2016-12-30 23:21 | RADIOLOGY REPORT PS360 ---
CHEST(2 VIEWS-NOT PORTABLE) HISTORY: CHEST PAIN X2 DAYS ORDERING PHYSICIAN: Rufino Stauffer MD PATIENT AGE: 36 years COMPARISON: 01/20/2016 FINDINGS: The cardiomediastinal silhouette and pulmonary vascularity are within normal limits. The lungs are clear without infiltrates, suspicious nodules, or pleural effusions. No acute bony abnormalities. IMPRESSION: Negative chest, no acute finding
== END 2016-12-30 21:08 | disposition home or self-care (01) ==
LOC: ER 18:24
PROVIDERS: Emergency Medicine
DX: J06.9 Acute upper respiratory infection, unspecified (principal); R09.1 Pleurisy; F17.210 Nicotine dependence, cigarettes, uncomplicated; K21.9 Gastro-esophageal reflux disease without esophagitis; I10 Essential (primary) hypertension; F41.9 Anxiety disorder, unspecified; Z88.6 Allergy status to analgesic agent

== ENCOUNTER 2016-12-31 16:07 | Emergency (ER) | payer MEDICAID ==
[~2016-12-31] VITALS: Ht 167.6 cm; Wt 101.2 kg
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
--- OUTSIDE RECORDS SUMMARY | 2016-12-31 16:23 | External Medical Summary Rpt | CCD ---
Author Author , SHAY DAY Address Unknown Phone [email or web address] Care Team Providers Care Mri Assistant Name Role Phone Jhonathan Grande MD, Unavailable Unavailable Jhonathan Rivera Unavailable Unavailable , Rancho Jones MD, Unavailable Unavailable Kristie VO MD, Unavailable Unavailable GRACE Jacob MD, Unavailable Unavailable Matheus Jacob MD Purpose Continuity of Care Document - 06-14-2012 through 2016 Problems Code Diagnosis DOS Provider Status 305.1 305.1 04-08-2013 Nirmal TOBACCO USE [facility] DISORDER Hospital 401.9 401.9 04-08-2013 Nirmal HYPERTENSIO [facility] N NOS Hospital 590.10 590.10 AC 04-08-2013 Nirmal PYELONEPHRI [facility] NOS Hospital 300.00 300.00 09-27-2012 Nirmal ANXIETY [facility] Hospital 296.80 296.80 08-28-2012 Nirmal BIPOLAR [facility] DISORDER, Hospital UNSPECIFIED V14.8 V14.8 08-28-2012 Nirmal HX-DRUG [facility] ALLERGY [facility] Hospital V58.69 V58.69 OTH 08-28-2012 Nirmal MED,LT,CURR [facility] ENT USE Hospital 346.90 346.90 07-06-2012 Nirmal MIGRAINE [facility] UNSPECIFIED Hospital W/O INTRACT MGRN W/O STATUS MIGRAINOSUS 844.9 844.9 06-14-2012 Nirmal SPRAIN OF [facility] KNEE & LEG Hospital NOS E849.5 E849.5 06-14-2012 Nirmal ACCID ON [facility] WAY E927.0 E927.0 06-14-2012 Nirmal OVEREXERTIO [facility] N FROM Hospital SUDDEN STRENUOUS MOVEMENT [...] /0 Ac .5 ti ve ML AL MN 00 05 0 No OM 64 -2 [...] SQUARE METERS Comment: If this patient is -Citizen Of [place], then multiply the Comment: result by 1.210. [...] blood 19:35 platele t mean volume ron Beltrami % = 5.1 % 1.7-9.3 complet 017 [...] D L coccus antigen Comment: LOT # @[id number] EXP DATE @2018-10-19 Rapid influenza A and B antigen detectio (12-21-2016 09:37) INFLUEN NOT NOT complet ZA B 017 DETECTE DETECTD ed ANTIGEN 09:37 D Comment: LOT # @[id number] EXP DATE @2018-11-15 Influen NOT NOT complet [...] Comment: Strong positive >59 Comment: Performed at: [facility] Comment: [address], [place], [place] [id number] Comment: Machine Bobbin Winder: Matheus Crane MD, Phone: [phone] Serum or plasma rheumatoid factor measur (11-27-2016 13:12) Serum < 10.0 0.0-13. complet or 017 IU/mL 9 ed plasma 13:12 rheumat oid factor measur Comment: Performed at: [facility] Comment: [address], [place] [id number] Comment: Machine Bobbin Winder: Teo Espinoza PhD, Phone: [phone] Comprehensive metabolic panel (11-24-2016 03:05) Serum = [...] SQUARE METERS Comment: If this patient is -Citizen Of [place], then multiply the Comment: result by 1.210. [...] 017 K/mm3 ed monocyt 03:05 e count Beltrami % = 5.0 % 1.7-9.3 complet 017 [...] Jones MD (ER) 4 13:23 4 14:41 [facility] Emergency MALIKA ALVA MD (ER) 3 16:16 3 16:16 [facility] Emergency MALIKA VO (ER) 3 02:40 3 02:40 [facility]OHAMED Emergency MALIKA Rivera MD (ER) 3 17:21 3 18:49 [facility] er R. Emergency MALIKA Jacob (ER) 3 21:05 3 21:23 [facility] Emergency MALIKA Grande MD (ER) 3 08:33 3 08:57 [facility]
--- OUTSIDE RECORDS SUMMARY | 2016-12-31 16:24 | External Medical Summary Rpt ---
Author Author [employer], [employer]AY [employer] Organization [employer] Address Unknown Phone Unavailable Results Natriutietic peptide B [Mass/volume] in Serum or Plasma Observa Value Referen Units Interpr Notes Date tion ce etation Range Natriutie 0 - 100 pg/mL Normal No Dec 30 tic informati 2016 7:35 peptide B on in PM source [Mass/vol data ume] in Serum or Plasma Fibrin D-dimer FEU [Mass/volume] in Platelet poor plasma Observa Value Referen Units Interpr Notes Date tion ce etation Range Fibrin 0 - 400 ng/mL Normal The Dec 30 D-dimer D-Dimer 2016 7:35 FEU values PM [Mass/vol are ume] in presented Platelet in units poor of plasma mass(ng/m L) ofD-Dimer units(DDU ).This test has been FDA approved as an aid in the assessmen tand evaluatio n of suspected DIC, and thromboem bolic eventsinc luding PE and DVT. However, it does not have approvalf or cut-off values for the exclusion of these condition s. CBC W Auto Differential panel in Blood Observa Value Referen Units Interpr Notes Date tion ce etation Range Basophils 0 - 0.2 K/MM3 Normal No Dec 302016 7:35 [#/volume on in PM ] in source Blood by data Automated count Basophils 0.1 - 2.0 % Normal No Dec 30 informati 2016 7:35 leukocyte on in PM s in source Blood by data Automated count Eosinophi 0.0 - 0.4 K/mm3 Normal No Dec 30 ls informati 2016 7:35 [#/volume on in PM ] in source Blood by data Automated count Eosinophi 0.1 - % Normal No Dec 30 ls/100 12.0 informati 2016 7:35 leukocyte on in PM s in source Blood by data Automated count Granulocy 1.8 - 7.8 K/mm3 Normal No Dec 30 digna informati 2016 7:35 [#/volume on in PM ] in source Blood by data Automated count Granulocy 37.0 - % Normal No Dec 30 digna/100 80.0 informati 2016 7:35 leukocyte on in PM s in source Blood by data Automated count Hematocri 37.0 - % Normal No Dec 30 t [Volume 47.0 informati 2016 7:35 on in PM Fraction] source of Blood data Hemoglobi 12.2 - g/dL Normal No Dec 30 n 16.2 informati 2016 7:35 [Mass/vol on in PM ume] in source Blood data Lymphocyt 0.7 - 4.5 K/mm3 Normal No Dec 30 es informati 2016 7:35 [#/volume on in PM ] in source Unspecifi data ed specimen by Automated count Lymphocyt 10 - 50.0 % Normal No Dec 30 es informati 2016 7:35 [#/volume on in PM ] in source Unspecifi data ed specimen by Automated count Erythrocy 27 - 31.2 pg Normal No Dec 30 te mean informati 2016 7:35 corpuscul on in PM ar source hemoglobi data n [Entitic mass] Erythrocy 31.8 - g/dl Normal No Dec 30 te mean 35.4 informati 2016 7:35 corpuscul on in PM ar source hemoglobi data n concentra tion [Mass/vol ume] by Automated count Erythrocy 82.2 - fl Normal No Dec 30 te mean 97.8 informati 2016 7:35 corpuscul on in PM ar volume source [Entitic data volume] by Automated count Monocytes 0.1 - 1.0 K/mm3 Normal No Dec 30ati 2016 7:35 [#/volume on in PM ] in source Blood by data Automated count Monocytes 1.7 - 9.3 % Normal No Dec 30 /100 informati 2016 7:35 leukocyte on in PM s in source Blood by data Automated count Platelet 7.4 - fl Normal No Dec 30 mean 10.4 informati 2016 7:35 volume on in PM [Entitic source volume] data in Blood by Automated count Platelets 142 - 424 K/mm3 Normal No Dec 30 informati 2016 7:35 [#/volume on in PM ] in source Blood data Erythrocy 4.2 - 5.4 M/mm3 Normal No Dec 30 digna informati 2016 7:35 [#/volume on in PM ] in source Amniotic data fluid Erythrocy 11.5 - % Normal No Dec 14 te 17.5 informati 2016 7:35 distribut on in PM ion width source [Entitic data volume] by Automated count Leukocyte 4.8 - K/MM3 Normal No Dec 14 s 10.8 informati 2016 7:35 [#/volume on in PM ] in source Blood data Influenza virus A+B Ag [Presence] in Unspecified [...] INFLUEN NOT NOT No No LOT # Nov 5 ZA B DETECTE DETECTD informa informa @[id number] ANTIGEN D tion in tion in 4 EXP 9:37 AM source source DATE data data @11-15 Streptococcus pyogenes Ag [Presence] in Unspecified specimen Observa Value Referen Units Interpr Notes Date tion ce etation Range Strepto NOT NOTDETE No No LOT # Nov 5 coccus DETECTE CTED informa informa @[id number] pyogene D tion in tion in 2 EXP 9:37 AM s Ag source source DATE [Presen data data @ ce] in 10-19 Unspeci fied specime n Erythrocyte sedimentation rate by Westergren method Observa Value Referen Units Interpr Notes Date tion ce etation Range Erythrocy 0 - 20 mm/hr Normal No Nov 27 informati 2016 1:12 sedimenta on in PM tion rate source by data Westergre n method CRP Observa Value Referen Units Interpr Notes Date tion ce etation Range CRP 0.0 - 0.9 MG/DL Normal No Nov 27 informati 2016 1:12 on in PM source data CBC W Auto Differential panel in Blood Observa Value Referen Units Interpr Notes Date tion ce etation Range Basophils 0 - 0.2 K/MM3 Normal No Nov 24 informati 2016 3:05 [#/volume on in AM [...] - 1.0 K/mm3 Normal No Nov 24 informati 2016 3:05 [#/volume on in AM ] in source Blood by data Automated count Monocytes 1.7 - 9.3 % Normal No Nov 24 /100 informati 2016 3:05 leukocyte on in AM s in source Blood by data Automated count Platelet 7.4 - fl Normal No Oct 9 mean 10.4 informati 2016 3:05 volume [...] 1.1 - 1.8 No Low No Nov 9 lobulin informati informati 2016 3:05 [Mass on [...] 0.2 - 1.0 mg/dL Normal No Nov 9 .total informati 2016 3:05 [Mass/vol on in AM ume] in source Serum or data Plasma Urea 7 - 18 mg/dL Normal No Nov 24 nitrogen informati 2016 3:05 [Mass/vol on in AM ume] in source Serum or data Plasma Calcium 8.5 - mg/dL Normal No Nov 24 [Mass/vol 10.1 informati 2017 3:05 ume] in on in AM Serum or source Plasma data Chloride 98 - 107 mmoL/L Normal No Nov 24 [Moles/vo informati 2017 3:05 lume] in on in AM Serum or source Plasma data Carbon 21.0 - mmoL/L Normal No Oct 9 dioxide, 32.0 informati 2016 3:05 total on in AM [Moles/vo source lume] in data Serum or Plasma Creatinin 0.55 - mg/dL Normal No Oct 9 e 1.02 informati 2017 3:05 [Mass/vol on in AM ume] in source Serum or data Plasma Creatinin 50 - 200 ML/MIN High No Nov 9 e renal informati 2016 3:05 clearance on in AM source predicted data by Cockcroft -Gault formula Estimated 59- ML/MIN No REFERENCE Oct 9 informati RANGE: 2017 3:05 glomerula on [...] Potassium 3.5 - 5.1 mmoL/L Low No Oct 9 informati 2016 3:05 [Moles/vo on in AM lume] in source Serum or data Plasma Sodium 136 - 145 mmoL/L Normal No Oct 9 [Moles/vo informati 2016 3:05 lume] in on in AM Serum or source Plasma data Aspartate 15 - 37 U/L Normal No Nov 9 informati 2016 3:05 aminotran on in AM sferase source [Enzymati data c activity/ volume] in Serum or Plasma Alanine 12 - 78 U/L Normal No Oct 9 aminotran informati 2016 3:05 sferase on [...] coccus DETECTE CTED informa informa N/A EXP 2017 pyogene D tion in tion in DATE 1:31 PM s Ag source source N/A [Presen data data ce] in Unspeci fied specime n
--- OUTSIDE RECORDS SUMMARY | 2016-12-31 16:24 | External Medical Summary Rpt | CCD ---
Demographics Preferred Language Moroccan Marital Status Unknown Pentecostal Affiliation Unknown Race Unknown Ethnic Group Unknown Author Author , SHAY DAY Address Unknown Phone Immunization No patient found.
--- OUTSIDE RECORDS SUMMARY | 2016-12-31 16:24 | External Medical Summary Rpt ---
[...] 5 ZA B DETECTE DETECTD informa informa @[id number] ANTIGEN D tion in tion in 4 EXP 9:37 AM source source DATE data data @11-15 Streptococcus pyogenes Ag [Presence] in Unspecified specimen Observa Value Referen Units Interpr Notes Date tion ce etation Range Strepto NOT NOTDETE No No LOT # Nov 5 coccus DETECTE CTED informa informa @[id number] pyogene D tion in tion in 2 [...]
--- OUTSIDE RECORDS SUMMARY | 2016-12-31 16:24 | External Medical Summary Rpt | CCD ---
Author Author [employer] Organization [employer] Address Unknown Phone Unavailable Purpose Continuity of Care Document - through 2016
--- OUTSIDE RECORDS SUMMARY | 2016-12-31 16:24 | External Medical Summary Rpt | CCD ---
Demographics Preferred Language [place]ese Marital Status Unknown Pentecostalism Affiliation Unknown Race Unknown Ethnic Group Unknown Author Author , SHAY DAY Address Unknown Phone Immunization No patient found.
[2016-12-31 16:49] LABS: HEMOGLOBIN 14.4 g/dL (12.2-16.2); LYMPH % 20.6 % (10-50.0)
[2016-12-31 17:12] LABS: BUN 9 mg/dL (7-18)
[2016-12-31 17:14] LABS: GFR (ESTIMATED) 96 ML/MIN (59-)
--- NOTE | 2016-12-31 17:23 | Emergency Room Report ---
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 N Clinical Suspician of Infection? N Mental Status: 1 - Regular (Normal Baseline) Sepsis Risk:Low Sepsis Risk Have you (or family members/close friends) recently traveled outside the [place]? N If Yes, where/when: Have you had exposure to infectious disease within the past month? TB? Other? Specify: Source patient, RN notes reviewed, family, RN/MD Exam Limitations no limitations Comment This is a 36-year-old feel patient presented to emergency room with midsternal chest pain, nonradiating, for the past 2-3 days, sent from PCPs office for evaluation. Patient was previously diagnosed with pleurisy however she did not respond to NSAIDs so far. Patient has any shots of breath, denies any cardiac history. Cardiac Chest Pain Chest pain indicative of cardiac No Timing/Duration getting worse, 2-3 days Severity/Quality moderate, sharp, stabbing Location central Chest Pain Radiation no radiation Activities at Onset light activity Modifying Factors worse with coughing, worse with exercise, worse with lying down, worse with movement, worse with palpation, improves with rest ALLERGIES Coded Allergies: lamotrigine (From Lamictal) (Intermediate, I-RASH 12/31/16) codeine (Mild, NA-NAUSEA 12/31/16) Home Medications Active Scripts D-METHORPHAN HB/P-EPD HCL/BPM (Bromfed Dm Cough Syrup) 10 ML PO Q4HP PRN cough #120 SYR Prov: 12/21/16 Fluticasone Propionate (Flonase 50 Mcg Nasal Marcella) 2 SPRAY NA DAILY #1 BOT Prov: 12/21/16 Methylprednisolone (Medrol Dose Benjamín) 4 MG PO UD #1 BENJAMÍN Prov: 12/21/16 Pantoprazole Sodium (Protonix) 40 MG PO DAILY #30 ECT Prov: 12/15/15 Prednisone (Prednisone 20MG) 20 MG PO BID #10 TAB Prov: 11/24/16 Azithromycin (Zithromycin (Z-BENJAMÍN) 250MG Tab) 250 MG PO DAILY #6 TAB Prov: 12/30/16 Reported Medications Escitalopram Oxalate (Lexapro 20MG) 20 MG PO DAILY History Medical History General CAD? No Angina: No VT: No Hypertension? Yes Hyperlipidemia? No CHF? No DVT? No PE? No COPD? No Asthma? No Anemia? No GERD? Yes Gastric ulcers? No GI Bleed? No Hernia? No Thyroid Problems? No Hypothyroidism? No CVA? No Seizures? No Diabetes? No Insulin Dependent: No Insulin Pump: No Home FSBS? No Renal Insuffiency? No End Stage Renal Disease? No UTI? Yes Stones? No BPH? No GB Disease: Yes Nephritic Syndrome? No Asplenia? No Hepatitis? No Sickle Cell Disease? No Arthritis? No Migraines? No Cataracts? No Glaucoma? No MRSA? No HIV? No TB? No Anxiety? Yes Depression? No Cancer? No Site: CERVICAL DYSPLASIA More? 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 Hx LMP N/A Family History Family Hx Diabetes Yes CAD Yes Hypertension Yes Hyperlipidemia Yes Cancer Yes TB No Social History Smoking Hx Smoker: Current Every Day Smoker Tobacco: Yes Type Cigarettes Packs/day < 1 Pack Alcohol Alcohol: No Review of Systems All Other Systems Reviewed and Negative Cardiovascular chest pain Physical Exam Vital Signs Vital Signs Date Time Temp Pulse Resp B/P Pulse O2 O2 Flow FiO2 Ox Delivery Rate 12/31 1844 97.9 68 18 138/76 98 12/31 1733 98.0 65 18 146/89 98 12/31 1730 20 12/31 1615 97.9 81 20 139/110 96 12/31 161 98.3 82 18 132/72 98 General Appearance normal appearance, WD/WN, mild distress Respiratory Status Yes: trachea midline, chest symmetrical, tender on palpation. No: respiratory distress. Lung Sounds bilateral: normal breath sounds, lungs clear. 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 No Comment 1944-upon evaluation patient appears medically stable, in no acute distress. Patient is requesting something stronger for pain than Motrin. Advised patient to see her PCP tomorrow morning for mandatory reevaluation, in order to conduct additional studies. Leukocytosis noted, however there is no acute pulmonary process at this time. Results/Orders Laboratory Tests 12/31/16 1634: Lactic Acid 1.1 12/31/16 1634: Sodium 138, Potassium 3.5, Chloride 103, Carbon Dioxide 29, BUN 9, Creatinine 0.7, Estimated Creat Clear 181, Estimated GFR (MDRD) 96, Glucose 121 H, Calcium 9.4, Total Bilirubin 0.2, AST 17, ALT 37, Alkaline Phosphatase 104, Creatine Kinase 49, CK-MB (CK-2) Rel Index 1.0, CK and CKMB Interp < 0.5, Troponin I < 0.02, Total Protein 7.8, Albumin 3.5, Globulin 4.3 H, Albumin/Globulin Ratio 0.8 L, D-Dimer 331, WBC 19.5 H, RBC 5.06, Hgb 14.4, Hct 43.8, MCV 86.5, RDW 12.3, Plt Count 293, MPV 7.6, Gran % 74.2, Gran # 14.5 H, Total Counted 100, Lymphocytes % 20.6, Monocytes % 4.8, Eosinophils % 0.2, Basophils % 0.3, Neutrophils 78 H, Lymphocytes (Manual) 17, Lymphocytes # 4.0, Monocytes (Manual ) 5, Monocytes # 0.9, Eosinophils # 0.0, Basophils # 0.1, Platelet Estimate NORMAL, PUBS MCHC 33.0, MCH 28.6 Current Medication Orders Sig/Nedra Start time Last Medication Dose Route Stop Time Status Admin Hydrocodone Bitart/ 1 TAB ONCE ONE 12/31 1944 CAN Acetaminophen PO 12/31 1945 Tramadol HCl 1 BENJAMÍN ONCE ONE 12/31 1944 DC 12/31 PO 12/31 Tramadol HCl 0 .STK-MED ONE 12/31 1944 DC PO Iopamidol 60 ML ONCE ONE 12/31 1914 UNV 12/31 IV 01/01 1916 190 Sodium Chloride 10 ML ONCE ONE 12/31 1914 UNV 12/31 IV 01/01 1916 190 Sodium Chloride 40 ML ONCE ONE 12/31 1914 UNV 12/31 IV 01/01 1916 190 Ketorolac 30 MG ONCE ONE 12/31 1730 DC 12/31 Tromethamine IV 12/31 1731 1730 Ondansetron HCl 4 MG ONCE ONE 12/31 1730 DC 12/31 IV 12/31 1731 1729 Ondansetron HCl 0 .STK-MED ONE 12/31 1727 DC .ROUTE Ketorolac 0 .STK-MED ONE 12/31 1726 DC Tromethamine .ROUTE Sodium Chloride 10 ML PRN PRN 12/31 1630 AC IV 01/01 1618 Orders Procedure Date/time Status DIET-NOTHING BY MOUTH 01/[address] CHEST W/PE PROTOCOL REQ 12/31 1820 Complete DIFFERENTIAL-WBC 12/31 1634 Complete ELECTROCARDIOGRAM REQUEST 12/31 1618 Active IV SALINE LOCK 12/31 1618 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 of ischemic chgs, no ectopy, normal QRS, normal NH, normal EKG, no EKG for comparison, non-spec. ST/Twave chgs, ST elevation, ST depression, LBBB, RBBB, ectopy, abnormal Q waves XRAY/CT/US XRAY/CT/US 1 XRAY chest XR interpretation by reviewed by me, discussed w/radiologist Xray Results no infiltrates, normal heart size, normal lung inflation aryan XRAY/CT/US 2 CT chest (iv/PO contrast) CT interpretation by discussed w/radiologist CT Results see radiologist's report EMILY Score for N-Stemi/Angina EMILY N-STEMI SCORE EMILY N-STEMI SCORE Response Value Age of patient Less than 65 yrs 0 Number of risk factors for CAD Presence of less than 3 0 Prior coronary artery stenosis (seen in angiography) Less than 50% 0 ST-Segment deviation on ECG (>1 min) Absent 0 Prior aspirin intake No ASA in the last 7 days 0 Severe anginal chest pain 2 or more episodes/24hr 1 Elevated cardiac markers(CK-MB or troponin) Absent 0 Total 1 Departure Departure Time of Disposition 1936 Disposition DC Home or Self Care(routine) Clinical Impression Primary Impression: Pleurisy Secondary Impressions: Leukocytosis Qualifiers: Leukocytosis type: unspecified Qualified Code: D72.829 - Elevated white blood cell count, unspecified Condition STABLE Referrals Darrian Godoy APRN (Family): Tomorrow-Call Office Patient Instructions DI for Leukocytosis, DI for Pleurisy Additional Instructions Please alternating Motrin and Tylenol for pain control, follow up with PCP in the morning if not better. It is VERY important to see Saray Godoy tomorrow, for additional workup!!! Discharge Counseling Counseled pt/family regarding diagnosis, test results, medications/RX, home care, follow up needs Comment Please alternating Motrin and Tylenol for pain control, follow up with PCP in the morning if not better. It is VERY important to see Saray Godoy tomorrow, for additional workup!!! ED Critical Care Critical Care No at 1953
--- NOTE | 2016-12-31 17:23 | Emergency Room Report ---
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 N Clinical Suspician of Infection? N Mental Status: 1 - Regular (Normal Baseline) Sepsis Risk:Low Sepsis Risk Have you (or family members/close friends) recently traveled outside the [place]? N If Yes, where/when: Have you had exposure to infectious disease within the past month? TB? Other? Specify: Source patient, RN notes reviewed, family, RN/MD Exam Limitations no limitations Comment This is a 36-year-old feel patient presented to emergency room with midsternal chest pain, nonradiating, for the past 2-3 days, sent from PCPs office for evaluation. Patient was previously diagnosed with pleurisy however she did not respond to NSAIDs so far. Patient has any shots of breath, denies any cardiac history. Cardiac Chest Pain Chest pain indicative of cardiac No Timing/Duration getting worse, 2-3 days Severity/Quality moderate, sharp, stabbing Location central Chest Pain Radiation no radiation Activities at Onset light activity Modifying Factors worse with coughing, worse with exercise, worse with lying down, worse with movement, worse with palpation, improves with rest ALLERGIES Coded Allergies: lamotrigine (From Lamictal) (Intermediate, I-RASH 12/31/16) codeine (Mild, NA-NAUSEA 12/31/16) Home Medications Active Scripts D-METHORPHAN HB/P-EPD HCL/BPM (Bromfed Dm Cough Syrup) 10 ML PO Q4HP PRN cough #120 SYR Prov: 12/21/16 Fluticasone Propionate (Flonase 50 Mcg Nasal [place]) 2 SPRAY NA DAILY #1 BOT Prov: 12/21/16 Methylprednisolone (Medrol Dose Benjamín) 4 MG PO UD #1 BENJAMÍN Prov: 12/21/16 Pantoprazole Sodium (Protonix) 40 MG PO DAILY #30 ECT Prov: 12/15/15 Prednisone (Prednisone 20MG) 20 MG PO BID #10 TAB Prov: 11/24/16 Azithromycin (Zithromycin (Z-BENJAMÍN) 250MG Tab) 250 MG PO DAILY #6 TAB Prov: 12/30/16 Reported Medications Escitalopram Oxalate (Lexapro 20MG) 20 MG PO DAILY History Medical History General CAD? No Angina: No ND: No Hypertension? Yes Hyperlipidemia? No CHF? No DVT? No PE? No COPD? No Asthma? No Anemia? No GERD? Yes Gastric ulcers? No GI Bleed? No Hernia? No Thyroid Problems? No Hypothyroidism? No CVA? No Seizures? No Diabetes? No Insulin Dependent: No Insulin Pump: No Home FSBS? No Renal Insuffiency? No End Stage Renal Disease? No UTI? Yes Stones? No BPH? No GB Disease: Yes Nephritic Syndrome? No Asplenia? No Hepatitis? No Sickle Cell Disease? No Arthritis? No Migraines? No Cataracts? No Glaucoma? No MRSA? No HIV? No TB? No Anxiety? Yes Depression? No Cancer? No Site: CERVICAL DYSPLASIA More? 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 LMP N/A Family History Family Hx Diabetes Yes CAD Yes Hypertension Yes Hyperlipidemia Yes Cancer Yes TB No Social History Smoking Hx Smoker: Current Every Day Smoker Tobacco: Yes Type Cigarettes Packs/day < 1 Pack Alcohol Alcohol: No Review of Systems All Other Systems Reviewed and Negative Cardiovascular chest pain Physical Exam Vital Signs Vital Signs Date Time Temp Pulse Resp B/P Pulse O2 O2 Flow FiO2 Ox Delivery Rate 12/31 1844 97.9 68 18 138/76 98 12/31 1733 98.0 65 18 146/89 98 12/31 1730 20 12/31 1615 97.9 81 20 139/110 96 12/31 161 98.3 82 18 132/72 98 General Appearance normal appearance, WD/WN, mild distress Respiratory Status Yes: trachea midline, chest symmetrical, tender on palpation. No: respiratory distress. Lung Sounds bilateral: normal breath sounds, lungs clear. Cardiovascular normal exam, regular rate/rhythm, no peripheral edema, no gallop, no JVD, no murmur, no rub, normal peripheral pulses Gastrointestinal normal bowel sounds, normal exam, non tender, soft, no organomegaly Extremities non-tender, normal range of motion, normal inspection Neurologic alert, quality liaison II-XII nml as tested, normal exam, oriented x 3 Mental status normal mood/affect Skin intact, normal color, warm/dry Medical Decision Making LABS/Meds/Orders Pt receiving controlled substance in ED? No Comment 1944-upon evaluation patient appears medically stable, in no acute distress. Patient is requesting something stronger for pain than Motrin. Advised patient to see her PCP tomorrow morning for mandatory reevaluation, in order to conduct additional studies. Leukocytosis noted, however there is no acute pulmonary process at this time. Results/Orders Laboratory Tests 12/31/16 1634: Lactic Acid 1.1 12/31/16 1634: Sodium 138, Potassium 3.5, Chloride 103, Carbon Dioxide 29, BUN 9, Creatinine 0.7, Estimated Creat Clear 181, Estimated GFR (MDRD) 96, Glucose 121 H, Calcium 9.4, Total Bilirubin 0.2, AST 17, ALT 37, Alkaline Phosphatase 104, Creatine Kinase 49, CK-MB (CK-2) Rel Index 1.0, CK and CKMB Interp < 0.5, Troponin I < 0.02, Total Protein 7.8, Albumin 3.5, Globulin 4.3 H, Albumin/Globulin Ratio 0.8 L, D-Dimer 331, WBC 19.5 H, RBC 5.06, Hgb 14.4, Hct 43.8, MCV 86.5, RDW 12.3, Plt Count 293, MPV 7.6, Gran % 74.2, Gran # 14.5 H, Total Counted 100, Lymphocytes % 20.6, Monocytes % 4.8, Eosinophils % 0.2, Basophils % 0.3, Neutrophils 78 H, Lymphocytes (Manual) 17, Lymphocytes # 4.0, Monocytes (Manual ) 5, Monocytes # 0.9, Eosinophils # 0.0, Basophils # 0.1, Platelet Estimate NORMAL, PUBS MCHC 33.0, MCH 28.6 Current Medication Orders Sig/Nedra Start time Last Medication Dose Route Stop Time Status Admin Hydrocodone Bitart/ 1 TAB ONCE ONE 12/31 1944 CAN Acetaminophen PO 12/31 1945 Tramadol HCl 1 BENJAMÍN ONCE ONE 12/31 1944 DC 12/31 PO 12/31 Tramadol HCl 0 .STK-MED ONE 12/31 1944 DC PO Iopamidol 60 ML ONCE ONE 12/31 1914 UNV 12/31 IV 01/01 1916 190 Sodium Chloride 10 ML ONCE ONE 12/31 1914 UNV 12/31 IV 01/01 1916 190 Sodium Chloride 40 ML ONCE ONE 12/31 1914 UNV 12/31 IV 01/01 1916 190 Ketorolac 30 MG ONCE ONE 12/31 1730 DC 12/31 Tromethamine IV 12/31 1731 1730 Ondansetron HCl 4 MG ONCE ONE 12/31 1730 DC 12/31 IV 12/31 1731 1729 Ondansetron HCl 0 .STK-MED ONE 12/31 1727 DC .ROUTE Ketorolac 0 .STK-MED ONE 12/31 1726 DC Tromethamine .ROUTE Sodium Chloride 10 ML PRN PRN 12/31 1630 AC IV 01/01 1618 Orders Procedure Date/time Status DIET-NOTHING BY MOUTH 01/[address] CHEST W/PE PROTOCOL REQ 12/31 1820 Complete DIFFERENTIAL-WBC 12/31 1634 Complete ELECTROCARDIOGRAM REQUEST 12/31 1618 Active IV SALINE LOCK 12/31 1618 Active CONFERENCE RESERVATIONIST 12/31 1618 Active CULTURE, BLOOD 12/31 1618 Active LACTIC ACID 12/31 1618 Complete D-DIMER 12/31 1618 Complete CBC WITH AUTO DIFF 12/31 1618 Complete CARDIAC ENZYMES 12/31 1618 Complete CHEM 12 PROFILE 12/31 1618 Complete 12 LEAD [facility] 12/31 UNK Active 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 of ischemic chgs, no ectopy, normal QRS, normal NC, normal EKG, no EKG for comparison, non-spec. ST/Twave chgs, ST elevation, ST depression, LBBB, RBBB, ectopy, abnormal Q waves XRAY/CT/US XRAY/CT/US 1 XRAY chest XR interpretation by reviewed by me, discussed w/radiologist Xray Results no infiltrates, normal heart size, normal lung inflation aryan XRAY/CT/US 2 CT chest (iv/PO contrast) CT interpretation by discussed w/radiologist CT Results see radiologist's report EMILY Score for N-Stemi/Angina EMILY N-STEMI SCORE EMILY N-STEMI SCORE Response Value Age of patient Less than 65 yrs 0 Number of risk factors for CAD Presence of less than 3 0 Prior coronary artery stenosis (seen in angiography) Less than 50% 0 ST-Segment deviation on ECG (>1 min) Absent 0 Prior aspirin intake No ASA in the last 7 days 0 Severe anginal chest pain 2 or more episodes/24hr 1 Elevated cardiac markers(CK-MB or troponin) Absent 0 Total 1 Departure Departure Time of Disposition 1936 Disposition DC Home or Self Care(routine) Clinical Impression Primary Impression: Pleurisy Secondary Impressions: Leukocytosis Qualifiers: Leukocytosis type: unspecified Qualified Code: D72.829 - Elevated white blood cell count, unspecified Condition STABLE Referrals Darrian Godoy APRN (Family): Tomorrow-Call Office Patient Instructions DI for Leukocytosis, DI for Pleurisy Additional Instructions Please alternating Motrin and Tylenol for pain control, follow up with PCP in the morning if not better. It is VERY important to see Saray Godoy tomorrow, for additional workup!!! Discharge Counseling Counseled pt/family regarding diagnosis, test results, medications/RX, home care, follow up needs Comment Please alternating Motrin and Tylenol for pain control, follow up with PCP in the morning if not better. It is VERY important to see Saray Godoy tomorrow, for additional workup!!! ED Critical Care Critical Care No at 1953
[2016-12-31 17:30] LABS: NEUTROPHILS 78 % (42-76)
--- NOTE | 2016-12-31 17:37 | RADIOLOGY REPORT PS360 ---
CHEST(2 VIEWS-NOT PORTABLE) HISTORY: Chest pain CP ORDERING PHYSICIAN: Luis Carmona MD PATIENT AGE: 36 years COMPARISON: 12/30/2016 FINDINGS: The cardiomediastinal silhouette and pulmonary vascularity are within normal limits. The lungs are clear without infiltrates, suspicious nodules, or pleural effusions. No acute bony abnormalities. IMPRESSION: No change with no acute finding
--- NOTE | 2016-12-31 19:48 | RADIOLOGY REPORT PS360 ---
CTA-CHEST HISTORY: CHEST PAIN chest pain 36-year-old Patient Age: 36 years: Female Ordering Physician: Luis Carmona MD TECHNIQUE: Helical CT scanning performed through the chest following cc cc [id number] followed x 40 mL normal saline. From the acquired thin sections thickened axial images reconstructed. Sagittal & coronal thickMIPP slab reconstruction image reconstruction workstation CTA technique COMPARISON :PA and lateral chest yesterday and today FINDINGS No evidence of pulmonary embolism. Good visualization of pulmonary arteries. Normal pulmonary arteries. Contrast is also seen in the aorta. It appears satisfactory with no significant finding. No aneurysm. No dissection.. Heart is normal size no pericardial effusion Lungs clear with no significant active disease. No pneumothorax. No pleural effusion. No focal pneumonia. Perhaps Scant pleural-parenchymal scarring posterior aspect right lower lobe. Barely appreciable, scant chronic feature. Benign old 5 mm calcified granuloma anterior aspect left upper lobe axial slice 18 Mediastinum. Residual finding this anterior mediastinum superiorly. No significant mediastinal nor hilar adenopathy. Airways appear satisfactory. Upper normal thickness at the distal esophagus with small hiatal hernia noted. Chest wall. No rib fracture or lesion. The T-spine. No lesion or fracture. Sternum intact. A [id number] x-ray lymph nodes bilaterally largest measuring up to 12.5 cm the left axilla. Within normal limits . 7 mm left thyroid nodule incidentally noted with otherwise normal size thyroid. Upper abdomen. Previous cholecystectomy IMPRESSION: ........... 1. No evidence of pulmonary embolism. Pulmonary arteries and aorta appears satisfactory. 2.. No acute cardiopulmonary findings. Lungs clear no pneumonia.No pleural effusion. No chest wall abnormalities identified 3. Small hiatal hernia, with perhaps mild wall thickening & GE junction region.. 4. Small 7 mm thyroid nodule left lobe.
[2016-12-31 20:01] VITALS: BP 138/76
== END 2016-12-31 20:02 | disposition home or self-care (01) ==
LOC: ER 16:07
PROVIDERS: Emergency Medicine
DX: R09.1 Pleurisy (principal); D72.829 Elevated white blood cell count, unspecified; F17.210 Nicotine dependence, cigarettes, uncomplicated; K21.9 Gastro-esophageal reflux disease without esophagitis; I10 Essential (primary) hypertension
CPT/HCPCS: J2405; Q9967